=== PATIENT | female | born 1955 | race Two or more races ===

== ENCOUNTER 2018-12-30 15:00 | Inpatient (IN) | payer MEDICAID, OTHER ==
[~2018-12-30] VITALS: Ht 160 cm; Wt 72.6 kg
[~2018-12-30 15:00] MED LIST: AMLODIPINE BESYL5 MG ORAL; ASPIRIN EC81 MG ORAL; BRILINTA90 MG PO; CARVEDILOL25 MG ORAL; CLOPIDOGREL75 MG ORAL; COLACE100 MG ORAL; COREG12.5 MG ORAL; DOCUSATE SODIU100 MG ORAL; ECOTRIN81 MG ORAL; FAMOTIDINE20 MG ORAL; FEROSUL325 M1 PO; FUROSEMIDE20 M1 ORAL; GABAPENTIN300 MG ORAL; HUMALOG100 UNIT/4 SUBQ; LANTUS5 UNITS SUBQ; LEVAQUIN500 MG ORAL; LIPITOR80 MG ORAL; LOSARTAN POTASS50 MG ORAL; NORVASC10 MG ORAL; NOVOLOG100 UNITS1 SUBQ; PLAVIX75 MG ORAL; PROTONIX40 MG ORAL; SERTRALINE HCL50 MG ORAL; VITAMIN D250000 UNI1 ORAL
[2018-12-30 15:10] VITALS: BP 172/66
--- NOTE | 2018-12-30 15:10 | NUR ---
ED Nurse Note: BROUGHT IN BY PT'S DAUGHTER DUE TO CP X 1 WEEK. 06/10, NONRADIATING. ALSO C/O NAUSEA AND HEADACHE. SEEN BY DR. Mae MA SOB, VOMITING,
[2018-12-30] MEDS ORDERED: VITAMIN D250000 UNI1 ORAL (15:21)
[2018-12-30] MEDS ORDERED: ATORVASTATIN CA40 MG ORAL (15:21)
[2018-12-30] MEDS ORDERED: SODIUM BICARBO650 MG PO (15:21)
[2018-12-30] MEDS ORDERED: CARVEDILOL25 MG ORAL (15:24)
[2018-12-30] MEDS ORDERED: HYDRALAZINE HCL50 MG ORAL (15:24)
[2018-12-30] MEDS ORDERED: OMEPRAZOLE20 M2 ORAL (15:24)
[2018-12-30] MEDS ORDERED: SERTRALINE HCL25 MG ORAL (15:26)
[2018-12-30] MEDS ORDERED: CHLORTHALIDONE25 MG ORAL (15:26)
[2018-12-30] MEDS ORDERED: DOCUSATE SODIU100 MG ORAL (15:26)
[2018-12-30] MEDS ORDERED: LOSARTAN POTASS50 MG ORAL (15:26)
--- NOTE | 2018-12-30 15:50 | Emergency Room Report ---
History of Present Illness General Chief Complaint: Chest Pain Source: Patient, Medical Record Present Illness HPI Patient presents with complaints of chest pain Ongoing for the pat 7 days Denies any shortness of breath midsternal is the pain worsens with exertion also at nighttime she feels is worse Denies any pleurisy patient however also complains of epigastric discomfort nausea vomiting Denies any focal deficit Allergies: Coded Allergies: No Known Allergies (Unverified , 04/06/15) Patient History Past Medical History: see triage record Pertinent Family History: none Last Menstrual Period: menopause Reviewed Nursing Documentation: PMH: Agreed; PSxH: Agreed Nursing Documentation-PMH Past Medical History: No History, Except For Hx Cardiac Problems: Yes Hx Hypertension: Yes Hx Diabetes: Yes Hx Cancer: No Hx Gastrointestinal Problems: No Hx Neurological Problems: Yes Hx Headaches: Yes Hx Weakness: Yes Review of Systems All Other Systems: negative except mentioned in HPI Physical Exam Vital Signs Date Time Temp Pulse Resp B/P (MAP) Pulse Ox O2 Delivery O2 Flow Rate FiO2 12/30/18 15:08 97.9 84 19 100 Room Air 12/30/18 15:10 172/66 Sp02 EP Interpretation: reviewed, normal General Appearance: well appearing, no apparent distress Head: normocephalic, atraumatic Eyes: bilateral eye PERRL, bilateral eye EOMI ENT: hearing grossly normal, normal pharynx, TMs + canals normal, uvula midline Neck: full range of motion, supple, no meningismus, no bony tend Respiratory: lungs clear, normal breath sounds, no rhonchi, no respiratory distress, no retraction, no accessory muscle use Cardiovascular #1: normal peripheral pulses, regular rate, rhythm, no edema, no gallop, no JVD, no murmur Gastrointestinal: normal bowel sounds, non tender, soft, no mass, no organomegaly, non-distended, no guarding, no hernia, no pulsatile mass, no rebound Genitourinary: no CVA tenderness Musculoskeletal: normal inspection Neurologic: oriented x3, responsive, physical therapy coordinator III-XII nml as tested, motor strength/ tone normal, sensory intact Psychiatric: mood/affect normal Skin: normal color, no rash, warm/dry, palpation normal Lymphatic: normal inspection, no adenopathy Medical Decision Making Diagnostic Impression: Primary Impression: ACS (acute coronary syndrome) ER Course Patient is a fairly complex patient with multiple differential to consideration including but not limited to cardiac cardiopulmonary and vascular emergencies Patient's blood work thus far is appropriate EKG does not show any ST elevations Given the patient's risk factors and presentation Patient requires further inpatient care Labs Test 12/30/18 15:35 12/30/18 15:41 White Blood Count 12.7 K/UL (4.8-10.8) Red Blood Count 3.31 M/UL (4.20-5.40) Hemoglobin 10.7 G/DL (12.0-16.0) Hematocrit 31.7 % (37.0-47.0) Mean Corpuscular Volume 96 FL (80-99) Mean Corpuscular Hemoglobin 32.4 PG (27.0-31.0) Mean Corpuscular Hemoglobin Concent 33.9 G/DL (32.0-36.0) Red Cell Distribution Width 11.4 % (11.6-14.8) Platelet Count 271 K/UL (150-450) Mean Platelet Volume 5.3 FL (6.5-10.1) Neutrophils (%) (Auto) 68.8 % (45.0-75.0) Lymphocytes (%) (Auto) 22.3 % (20.0-45.0) Monocytes (%) (Auto) 6.5 % (1.0-10.0) Eosinophils (%) (Auto) 1.8 % (0.0-3.0) Basophils (%) (Auto) 0.6 % (0.0-2.0) Sodium Level 132 MMOL/L (136-145) Potassium Level 4.4 MMOL/L (3.5-5.1) Chloride Level 97 MMOL/L (98-107) Carbon Dioxide Level 22 MMOL/L (21-32) Anion Gap 13 mmol/L (5-15) Blood Urea Nitrogen 76 mg/dL (7-18) Creatinine 3.5 MG/DL (0.55-1.30) Estimat Glomerular Filtration Rate 13.3 mL/min (>60) Glucose Level 128 MG/DL (74-106) Calcium Level 9.2 MG/DL (8.5-10.1) Total Bilirubin 0.3 MG/DL (0.2-1.0) Aspartate Amino Transf (AST/SGOT) 15 U/L (15-37) Alanine Aminotransferase (ALT/SGPT) 20 U/L (12-78) Alkaline Phosphatase 104 U/L (46-116) Total Creatine Kinase 228 U/L (26-308) Creatine Kinase MB 3.4 NG/ML (0.0-3.6) Creatine Kinase MB Relative Index 1.4 Troponin I 0.000 ng/mL (0.000-0.056) Total Protein 8.4 G/DL (6.4-8.2) Albumin 3.4 G/DL (3.4-5.0) Globulin 5.0 g/dL Albumin/Globulin Ratio 0.7 (1.0-2.7) Lipase 197 U/L (73-393) Urine Color Pale yellow Urine Appearance Clear Urine pH 6.5 (4.5-8.0) Urine Specific [place] 1.005 (1.005-1.035) Urine Protein 3+ (NEGATIVE) Urine Glucose (UA) Negative (NEGATIVE) Urine Ketones Negative (NEGATIVE) Urine Blood 1+ (NEGATIVE) Urine Nitrite Negative (NEGATIVE) Urine Bilirubin Negative (NEGATIVE) Urine Urobilinogen Normal MG/DL (0.0-1.0) Urine Leukocyte Esterase 1+ (NEGATIVE) Urine RBC 2-4 /HPF (0 - 2) Urine WBC 0-2 /HPF (0 - 2) Urine Squamous Epithelial Cells Few /LPF (NONE/OCC) Urine Bacteria Few /HPF (NONE) EKG Diagnostic Results Rate: normal Rhythm: NSR ST Segments: other - Nonspecific ST T-wave changes Rhythm Strip Diag. Results EP Interpretation: yes Rate: 80 Rhythm: NSR, no PVC's, no ectopy Chest X-Ray Diagnostic Results Chest X-Ray Diagnostic Results : Chest X-Ray Ordered: Yes # of Views/Limited/Complete: 1 View Indication: Chest Pain EP Interpretation: Yes Interpretation: no consolidation, no effusion, no pneumothorax Impression: No acute disease - Cardiomegaly Electronically Signed by: Saul Santos DO Last Vital Signs Date Time Temp Pulse Resp B/P (MAP) Pulse Ox O2 Delivery O2 Flow Rate FiO2 12/30/18 15:10 97.9 79 21 172/66 100 Room Air Status: improved Disposition: ADMITTED INPATIENT Condition: Serious Saul Santos DO Dec 30, 2018 15:50
[2018-12-30 16:13] VITALS: BP 162/66
[2018-12-30 16:31] LABS: APPEARANCE,URINE CLEAR; BILIRUBIN, URINE NEGATIVE (NEGATIVE); COLOR,URINE PALE YELLOW; GLUCOSE, URINE (UA) NEGATIVE (NEGATIVE); KETONES,URINE NEGATIVE (NEGATIVE); LEUKOCYTE ESTERASE ,URINE 1+ (NEGATIVE); NITRITE,URINE NEGATIVE (NEGATIVE); PH,URINE 6.5 (4.5-8.0); PROTEIN,URINE 3+ (NEGATIVE); UROBILINOGEN,URINE NORMAL MG/DL (0.0-1.0)
[2018-12-30 16:32] LABS: ANION GAP 13 mmol/L (5-15); BLOOD UREA NITROGEN 76 mg/dL (7-18); CALCIUM 9.2 MG/DL (8.5-10.1); CARBON DIOXIDE 22 MMOL/L (21-32); CHLORIDE 97 MMOL/L (98-107); CREATININE 3.5 MG/DL (0.55-1.30); POTASSIUM 4.4 MMOL/L (3.5-5.1); SODIUM 132 MMOL/L (136-145)
[2018-12-30 16:34] LABS: BASOPHILS % (AUTO) 0.6 % (0.0-2.0); EOSINOPHILS % (AUTO) 1.8 % (0.0-3.0); HEMATOCRIT 31.7 % (37.0-47.0); HEMOGLOBIN 10.7 G/DL (12.0-16.0); LYMPHOCYTES % (AUTO) 22.3 % (20.0-45.0); MEAN CORPUSCULAR VOLUME 96 FL (80-99); MONOCYTES % (AUTO) 6.5 % (1.0-10.0); NEUTROPHILS % (AUTO) 68.8 % (45.0-75.0); PLATELET COUNT 271 K/UL (150-450); RED BLOOD COUNT 3.31 M/UL (4.20-5.40); RED CELL DISTRIBUTION WIDTH 11.4 % (11.6-14.8); WHITE BLOOD COUNT 12.7 K/UL (4.8-10.8)
--- NOTE | 2018-12-30 16:43 | Diagnostic Imaging Report ---
Indication: Chest pain Technique: One view of the chest Comparison: 06/30/2015 Findings: The heart is mildly enlarged. Lungs and pleural spaces are clear. No significant change Impression: Mild cardiomegaly. No acute process
[2018-12-30 16:45] LABS: ALANINE AMINOTRANSFERASE 20 U/L (12-78); ALBUMIN 3.4 G/DL (3.4-5.0); ALBUMIN/GLOBULIN RATIO 0.7 (1.0-2.7); ALKALINE PHOSPHATASE 104 U/L (46-116); ASPARTATE AMINO TRANSFERASE 15 U/L (15-37); BILIRUBIN,TOTAL 0.3 MG/DL (0.2-1.0); CKMB 3.4 NG/ML (0.0-3.6); CREATINE KINASE 228 U/L (26-308)
[2018-12-30 18:20] VITALS: BP 131/65
--- NOTE | 2018-12-30 19:14 | NUR ---
HAND-OFF: Report given to PETR Gaines. No s/s of distress.
--- NOTE | 2018-12-30 19:30 | NUR ---
ED Nurse Note: RECIEVED REPORT TO RESUME CARE, PT IN BED SLEEPING, AROUSES EASILY TO VERBAL STIMULI, PT DENIES CP AT THIS TIME, ON CARDIAC MONITORING, HAS PATENT SALINE LOCK IN LEFT QC, V/S STABLE, NO SOB OR LABORED BREATHING, PT WAITING FOR HOSPITAL ROOM FOR ADMISSION, WILL RESUME CARE ORDERED AND PREPARE FOR ADMIT.
[2018-12-30 20:15] VITALS: BP 124/59
--- NOTE | 2018-12-30 21:35 | NUR ---
ED Nurse Note: PT HAS ROOM FOR ADMISSION, CONTINUES TO REST QUIETLY IN BED, DENIES CP OR ANY CHAGNES AT THIS TIME, V/S STABLE, NO SOB ORLABORED BREATHING, REPORT GIVEN TO PETR NULL, BELONGINGS LIST COMPLETED, PT BEING TAKEN TO FLOOR BED VIA GURNEY AND ACLS PROTOCOLS, NAD NOTED DURING PT TRANSPORT WITH RN AND ER-TECH.
--- NOTE | 2018-12-30 22:15 | NUR ---
NURSE NOTES: Patient received from ED, transported via gurney, ambulated with steady gait to the bed. Report received from PETR Larios. Patient awake, alert and verbally responsive. No SOB, no acute distress on RA. IV site on R AC #20, patent and intact. V/S taken and stable. Put on cardiac technologist, shows sinus rhythm. Belongings checked and all accounted for. No skin breakdown noted. Pt oriented to staff and unit. Bed at lowest position, call light within reach. Paged Dr. Shoemaker, awaiting for call back for admission orders.
--- NOTE | 2018-12-30 23:30 | NUR ---
NURSE NOTES: Dr. Shoemaker called back for admission orders. Noted and carried out. Pt comfortable and sleeping at this time. Remains sinus rhythm at the monitor tech.
[2018-12-30] MEDS ORDERED: HYDROcodone/Acetamin 5/325 tab ORAL PRN (23:45)
[2018-12-31] VITALS: BP 137/68
--- NOTE | 2018-12-31 02:08 | NUR ---
NURSE NOTES: Pt asleep, breathing even and unlabored, no s/sx of pain nor any discomfort at this time. Bed at lowest position, call light within reach. Will continue to monitor.
[2018-12-31 04:00] VITALS: BP 131/71
[2018-12-31 04:36] LABS: BASOPHILS % (AUTO) 0.6 % (0.0-2.0); EOSINOPHILS % (AUTO) 2.8 % (0.0-3.0); HEMATOCRIT 30.4 % (37.0-47.0); HEMOGLOBIN 9.9 G/DL (12.0-16.0); LYMPHOCYTES % (AUTO) 25.3 % (20.0-45.0); MEAN CORPUSCULAR VOLUME 96 FL (80-99); MONOCYTES % (AUTO) 6.6 % (1.0-10.0); NEUTROPHILS % (AUTO) 64.7 % (45.0-75.0); PLATELET COUNT 271 K/UL (150-450); RED BLOOD COUNT 3.16 M/UL (4.20-5.40); WHITE BLOOD COUNT 9.5 K/UL (4.8-10.8)
[2018-12-31 04:57] LABS: ANION GAP 10 mmol/L (5-15); BLOOD UREA NITROGEN 71 mg/dL (7-18); CALCIUM 8.6 MG/DL (8.5-10.1); CARBON DIOXIDE 23 MMOL/L (21-32); CHLORIDE 104 MMOL/L (98-107); CHOLESTEROL 190 MG/DL (< 200); CREATININE 3.4 MG/DL (0.55-1.30); HDL CHOLESTEROL 45 MG/DL (40-60); SODIUM 137 MMOL/L (136-145); TRIGLYCERIDES 256 MG/DL (30-150)
[2018-12-31] MEDS: HydrALAZINE 50mg tab ORAL SCH ×4 (05:37→22:00)
[2018-12-31] MEDS: NovoLOG Insulin Flexpen SUBQ SCH ×4 (06:05→20:50)
--- NOTE | 2018-12-31 07:02 | NUR ---
HAND-OFF: Report given to PETR Chandra. Endorsed plan of care.
--- NOTE | 2018-12-31 07:39 | NUR ---
NURSE NOTES: Received report from Melissa. Pt AOx4 lying in bed, spontaneously opened up her eyes as we walked in in room air. Pt has no pain. Pt on hospital monitor SR to 1st degree ABB during night. Bed locked and in lowest position.
--- NOTE | 2018-12-31 07:50 | NUR ---
NURSE NOTES: Received report from Melissa. Pt AOx4, woke up upon receiving bedside report. R AC 20g sl. Iv patent flushed with 10ml ns. Pt on registered nurse cardiac rythm SR to 1st BBB last night. Bed locked and in lowest position. Call light within reach. b
[2018-12-31 08:00] VITALS: BP 134/66
[2018-12-31] MEDS: Sertraline 50mg tab ORAL SCH (08:26)
[2018-12-31] MEDS: Aspirin EC 81mg tab ORAL SCH (08:27)
[2018-12-31] MEDS ORDERED: Carvedilol 25mg Tab ORAL SCH (09:00)
[2018-12-31] MEDS ORDERED: Docusate 100mg cap ORAL SCH (09:00)
[2018-12-31] MEDS: Sodium Bicarbonate 650mg Tab ORAL SCH ×2 (09:30→17:28)
--- NOTE | 2018-12-31 11:42 | History and Physical ---
History of Present Illness General Date patient seen: Dec 31, 2018 Time patient seen: 09:00 Reason for Hospitalization: Chest Pain Present Illness HPI Patient is a 63 y/o female who presents with complaints of chest pain to the [facility] ED yesterday She stated her pain had been ongoing for the past 7 days. States pain is midsternal, exacerbated by exertion and states is worse at bedtime. Denied any dyspnea. No cough/fever or recent URI symptoms. She has no hx of CAD/CVA, non smoker, non-drinker Other complaints include headache without other neurologic complaints or vision changes and generalized abdominal pain. No n/v, no diarrhea or change in bowel habits. No melena or hematochezia. Allergies: Coded Allergies: No Known Allergies (Unverified , 04/06/15) Medication History Scheduled Amlodipine Besylate (Norvasc), 10 MG ORAL DAILY Aspirin (Ecotrin), 81 MG ORAL DAILY Atorvastatin (Lipitor), 80 MG ORAL QHS Atorvastatin Calcium* (Atorvastatin Calcium*), 80 MG ORAL BEDTIME, (Reported) Carvedilol (Coreg), 12.5 MG ORAL BID Carvedilol* (Carvedilol*), 25 MG ORAL DAILY, (Reported) Chlorthalidone* (Chlorthalidone*), 25 MG ORAL DAILY, (Reported) Clopidogrel Bisulfate* (Plavix*), 75 MG ORAL DAILY Docusate Sodium* (Colace*), 100 MG ORAL EVERY 12 HOURS Docusate Sodium* (Docusate Sodium*), 100 MG ORAL DAILY, (Reported) Ergocalciferol (Vitamin D2)* (Vitamin D*), 50,000 UNIT ORAL ONCE A WEEK, ( Reported) Hydralazine Hcl* (Hydralazine Hcl*), 50 MG ORAL EVERY 8 HOURS, (Reported) Insulin Aspart (Novolog Flexpen), 0 UNITS SUBQ BEFORE MEALS AND HS Omeprazole (Omeprazole), 20 MG ORAL DAILY, (Reported) Pantoprazole* (Protonix*), 40 MG ORAL DAILY Sertraline Hcl* (Sertraline Hcl*), 50 MG ORAL DAILY, (Reported) Sodium Bicarbonate* (Nahco3*), 650 MG PO BID, (Reported) Discontinued Medications Losartan Potassium* (Losartan Potassium*), 100 MG ORAL DAILY, (Reported) Discontinued Reason: MD discontinued med Patient History Limited by: language barrier History Provided By: Patient Healthcare decision maker Resuscitation status Full Code Advanced Directive on File No Past Medical/Surgical History Past Medical/Surgical History: (1) CKD (chronic kidney disease) stage 3, GFR 30-59 ml/min (2) Hypertension (3) Uncontrolled type 2 diabetes mellitus with chronic kidney disease (4) Dyslipidemia (5) CAD S/P percutaneous coronary angioplasty Family History Family History: Patient reports no known family medical history. Social History Social History: (1) No significant social history Review of Systems Constitutional: Reports: no symptoms Eye: Reports: no symptoms ENT: Reports: no symptoms Respiratory: Reports: no symptoms Cardiovascular: Reports: chest pain Gastrointestinal: Reports: abdominal pain Genitourinary: Reports: no symptoms Musculoskeletal: Reports: no symptoms Skin: Reports: no symptoms Psychiatric: Reports: no symptoms Neurological: Reports: headache Endocrine: Reports: no symptoms Hematologic/Lymphatic: Reports: no symptoms Physical Exam General Appearance: WD/WN, no apparent distress, alert Lines, tubes and drains: peripheral HEENT: normocephalic, atraumatic, anicteric, mucous membranes moist, PERRL, EOMI Neck: non-tender, normal alignment, supple, normal inspection Respiratory/Chest: lungs clear, normal breath sounds, no respiratory distress, no accessory muscle use Breasts: no masses Cardiovascular/Chest: normal peripheral pulses, normal rate, regular rhythm, no gallop/murmur, no JVD Abdomen: normal bowel sounds, non tender, soft, no organomegaly Extremities: normal range of motion, non-tender, normal inspection, no calf tenderness, normal capillary refill Skin Exam: normal pigmentation, warm/dry, no diaphoresis Neurologic: no motor/sensory deficits, alert, oriented x 3, responsive, normal mood/affect Last 24 Hour Vital Signs Date Time Temp Pulse Resp B/P (MAP) Pulse Ox O2 Delivery O2 Flow Rate FiO2 12/31/18 10:10 Room Air 12/31/18 08:28 77 134/66 12/31/18 08:27 77 134/66 12/31/18 08:00 97.7 77 18 134/66 (88) 9 12/31/18 05:37 132/72 12/31/18 04:00 71 12/31/18 04:00 98.9 71 18 131/71 (91) 99 12/31/18 00:00 69 12/31/18 00:00 137/68 12/31/18 00:00 99.3 79 18 137/68 (91) 99 12/30/18 22:18 Room Air 12/30/18 21:40 98.4 76 20 124/59 100 Room Air 79 12/30/18 20:15 98.4 79 20 124/59 100 Room Air 12/30/18 18:20 76 17 131/65 100 Room Air 12/30/18 16:13 78 18 162/66 100 Room Air 12/30/18 15:10 97.9 79 21 172/66 100 Room Air 12/30/18 15:10 79 21 Room Air 12/30/18 15:08 97.9 84 19 100 Room Air Intake and Output 12/30/18 12/31/18 19:00 07:00 Intake Total 120 ml Balance 120 ml Intake Oral 120 ml # Voids 1 1 Laboratory Tests Test 12/30/18 15:35 12/30/18 15:41 12/31/18 04:26 12/31/18 10:30 White Blood Count 12.7 K/UL (4.8-10.8) H 9.5 K/UL (4.8-10.8) Red Blood Count 3.31 M/UL (4.20-5.40) L 3.16 M/UL (4.20-5.40) L Hemoglobin 10.7 G/DL (12.0-16.0) L 9.9 G/DL (12.0-16.0) L Hematocrit 31.7 % (37.0-47.0) L 30.4 % (37.0-47.0) L Mean Corpuscular Volume 96 FL (80-99) 96 FL (80-99) Mean Corpuscular Hemoglobin 32.4 PG (27.0-31.0) H 31.4 PG (27.0-31.0) H Mean Corpuscular Hemoglobin Concent 33.9 G/DL (32.0-36.0) 32.7 G/DL (32.0-36.0) Red Cell Distribution Width 11.4 % (11.6-14.8) L 12.0 % (11.6-14.8) Platelet Count 271 K/UL (150-450) 271 K/UL (150-450) Mean Platelet Volume 5.3 FL (6.5-10.1) L 5.0 FL (6.5-10.1) L Neutrophils (%) (Auto) 68.8 % (45.0-75.0) 64.7 % (45.0-75.0) Lymphocytes (%) (Auto) 22.3 % (20.0-45.0) 25.3 % (20.0-45.0) Monocytes (%) (Auto) 6.5 % (1.0-10.0) 6.6 % (1.0-10.0) Eosinophils (%) (Auto) 1.8 % (0.0-3.0) 2.8 % (0.0-3.0) Basophils (%) (Auto) 0.6 % (0.0-2.0) 0.6 % (0.0-2.0) Sodium Level 132 MMOL/L (136-145) L 137 MMOL/L (136-145) Potassium Level 4.4 MMOL/L (3.5-5.1) 5.0 MMOL/L (3.5-5.1) Chloride Level 97 MMOL/L (98-107) L 104 MMOL/L (98-107) Carbon Dioxide Level 22 MMOL/L (21-32) 23 MMOL/L (21-32) Anion Gap 13 mmol/L (5-15) 10 mmol/L (5-15) Blood Urea Nitrogen 76 mg/dL (7-18) H 71 mg/dL (7-18) H Creatinine 3.5 MG/DL (0.55-1.30) H 3.4 MG/DL (0.55-1.30) H Estimat Glomerular Filtration Rate 13.3 mL/min (>60) 13.7 mL/min (>60) Glucose Level 128 MG/DL (74-106) H 115 MG/DL (74-106) H Calcium Level 9.2 MG/DL (8.5-10.1) 8.6 MG/DL (8.5-10.1) Total Bilirubin 0.3 MG/DL (0.2-1.0) Aspartate Amino Transf (AST/SGOT) 15 U/L (15-37) Alanine Aminotransferase (ALT/SGPT) 20 U/L (12-78) Alkaline Phosphatase 104 U/L (46-116) Total Creatine Kinase 228 U/L (26-308) Creatine Kinase MB 3.4 NG/ML (0.0-3.6) Creatine Kinase MB Relative Index 1.4 Troponin I 0.000 ng/mL (0.000-0.056) 0.000 ng/mL (0.000-0.056) Pending Total Protein 8.4 G/DL (6.4-8.2) H Albumin 3.4 G/DL (3.4-5.0) Globulin 5.0 g/dL Albumin/Globulin Ratio 0.7 (1.0-2.7) L Lipase 197 U/L (73-393) Urine Color Pale yellow Urine Appearance Clear Urine pH 6.5 (4.5-8.0) Urine Specific [place] 1.005 (1.005-1.035) Urine Protein 3+ (NEGATIVE) H Urine Glucose (UA) Negative (NEGATIVE) Urine Ketones Negative (NEGATIVE) Urine Blood 1+ (NEGATIVE) H Urine Nitrite Negative (NEGATIVE) Urine Bilirubin Negative (NEGATIVE) Urine Urobilinogen Normal MG/DL (0.0-1.0) Urine Leukocyte Esterase 1+ (NEGATIVE) H Urine RBC 2-4 /HPF (0 - 2) H Urine WBC 0-2 /HPF (0 - 2) Urine Squamous Epithelial Cells Few /LPF (NONE/OCC) Urine Bacteria Few /HPF (NONE) Hemoglobin A1c 8.4 % (4.3-6.0) H Triglycerides Level 256 MG/DL (30-150) H Cholesterol Level 190 MG/DL (< 200) LDL Cholesterol 100 mg/dL (<100) HDL Cholesterol 45 MG/DL (40-60) Cholesterol/HDL Ratio 4.2 (3.3-4.4) Height (Feet): 5 Height (Inches): 3.00 Weight (Pounds): 160 Medications Current Medications Medications (Trade) Dose Ordered Sig/Dara Route PRN Reason Start Time Stop Time Status Last Admin Dose Admin Acetaminophen (Tylenol) 650 mg Q4H PRN ORAL Mild Pain/Temp > 100.5 12/30/18 23:45 01/29/19 23:44 Acetaminophen/ Hydrocodone Bitart ([place] 5/325) 1 tab Q4H PRN ORAL Moderate Pain (Pain Scale 4-6) 12/30/18 23:45 01/06/19 23:44 Amlodipine Besylate (Norvasc) 10 mg DAILY ORAL 12/31/18 09:00 01/30/19 08:59 12/31/18 08:27 Aspirin (Ecotrin) 81 mg DAILY ORAL 12/31/18 09:00 01/30/19 08:59 12/31/18 08:27 Atorvastatin Calcium (Lipitor) 80 mg QHS ORAL 12/31/18 21:00 01/30/19 20:59 Carvedilol (Coreg) 25 mg DAILY ORAL 12/31/18 09:00 01/30/19 08:59 12/31/18 08:28 Chlorthalidone (Chlorthalidone) 25 mg DAILY ORAL 12/31/18 09:00 01/30/19 08:59 12/31/18 08:28 Clopidogrel Bisulfate (Plavix) 75 mg DAILY ORAL 12/31/18 09:00 01/30/19 08:59 12/31/18 08:28 Dextrose (Dextrose 50%) 25 ml Q30M PRN IV Hypoglycemia 12/30/18 23:45 01/29/19 23:44 Dextrose (Dextrose 50%) 50 ml Q30M PRN IV Hypoglycemia 12/30/18 23:45 01/29/19 23:44 Docusate Sodium (Colace) 100 mg DAILY ORAL 12/31/18 09:00 01/30/19 08:59 12/31/18 08:27 Ergocalciferol (Drisdol) 50,000 intlu ONCE A WEEK ORAL 01/02/19 09:00 02/01/19 08:59 Hydralazine HCl (Apresoline) 50 mg EVERY 8 HOURS ORAL 12/31/18 00:00 01/30/19 00:00 12/31/18 05:37 Insulin Aspart (NovoLOG) BEFORE MEALS AND HS SUBQ 12/31/18 06:30 01/30/19 06:29 12/31/18 06:05 Ondansetron HCl (Zofran) 4 mg Q4H PRN IVP Nausea & Vomiting 12/30/18 23:45 01/29/19 23:44 Pantoprazole (Protonix) 40 mg DAILY ORAL 12/31/18 09:00 01/30/19 08:59 12/31/18 08:28 Sertraline HCl (Zoloft) 50 mg DAILY ORAL 12/31/18 09:00 01/30/19 08:59 12/31/18 08:26 Sodium Bicarbonate (NaHCO3) 650 mg BID ORAL 12/31/18 09:00 01/30/19 08:59 12/31/18 09:30 Assessment/Plan Problem List: (1) Chest pain of uncertain etiology Assessment & Plan: Rule out acs with serial EKGs/troponins Cont cardiac monitoring Consider Echo Cardiology consult Cont asa/plavix/coreg for now ICD Codes: R07.89 - Other chest pain SNOMED: 07121238 (2) CAD S/P percutaneous coronary angioplasty Assessment & Plan: Likely had prior stent placement however pt is poor historian Cont cardiac monitoring Cont asa/plavix Troponins initially neg f/u cardiology recs ICD Codes: I25.10 - Atherosclerotic heart disease of [place] coronary artery without angina pectoris; Z98.61 - Coronary angioplasty status SNOMED: 560613861 (3) CKD (chronic kidney disease) stage 5, GFR less than 15 ml/min Assessment & Plan: Advanced CKD, likely chronic However, should be evaluated by Nephrology for med adjustment and r/o EMILIANO component Renally adjust med doses ICD Codes: N18.5 - Chronic kidney disease, stage 5 SNOMED: 356291587 (4) Uncontrolled type 2 diabetes mellitus with chronic kidney disease Assessment & Plan: Cont insulin sliding scale, sugars stable for now ICD Codes: E11.22 - Type 2 diabetes mellitus with diabetic chronic kidney disease; E11.65 - Type 2 diabetes mellitus with hyperglycemia SNOMED: 02463802, 369863357, 747176660 (5) Anemia due to stage 5 chronic kidney disease Assessment & Plan: Monitor Hgb closely Will d/w Renal whether pt would benefit from adding epogen ICD Codes: N18.5 - Chronic kidney disease, stage 5; D63.1 - Anemia in chronic kidney disease SNOMED: 940663530564828 (6) Acute hyponatremia Assessment & Plan: Presented with hyponatremia, now resolved on repeat testing Monitor Na, apprec renal input ICD Codes: E87.1 - Hypo-osmolality and hyponatremia SNOMED: 3556659 (7) Hypertension Assessment & Plan: Cont coreg/chlorthalidone/norvasc ICD Codes: I10 - Essential (primary) hypertension SNOMED: 08535096 (8) Dyslipidemia Assessment & Plan: Cont statin ICD Codes: E78.5 - Hyperlipidemia, unspecified SNOMED: 580922881 German Steinberg MD Dec 31, 2018 11:42
[2018-12-31 12:00] VITALS: BP_SYST 107; BP_SYST 114; BP_DIAS 55; BP_DIAS 90
--- NOTE | 2018-12-31 13:22 | Consultation ---
History of Present Illness General Date patient seen: Dec 31, 2018 Time patient seen: 13:16 Chief Complaint: Chest Pain Present Illness HPI Patient is a 63 y/o female who presents with complaints of chest pain to the [facility] [place] [facility] yesterday. CXR clear, Troponin negative x3. Hx of HLD, HTN< CAD s /p PCI NO previous [place]/PE/DVT CVA, Chest pain is pressure sensation, no radiation no back pain no fever Allergies: Coded Allergies: No Known Allergies (Unverified , 04/06/15) Medication History Scheduled Amlodipine Besylate (Norvasc), 10 MG ORAL DAILY Aspirin (Ecotrin), 81 MG ORAL DAILY Atorvastatin (Lipitor), 80 MG ORAL QHS Atorvastatin Calcium* (Atorvastatin Calcium*), 80 MG ORAL BEDTIME, (Reported) Carvedilol (Coreg), 12.5 MG ORAL BID Carvedilol* (Carvedilol*), 25 MG ORAL DAILY, (Reported) Chlorthalidone* (Chlorthalidone*), 25 MG ORAL DAILY, (Reported) Clopidogrel Bisulfate* (Plavix*), 75 MG ORAL DAILY Docusate Sodium* (Colace*), 100 MG ORAL EVERY 12 HOURS Docusate Sodium* (Docusate Sodium*), 100 MG ORAL DAILY, (Reported) Ergocalciferol (Vitamin D2)* (Vitamin D*), 50,000 UNIT ORAL ONCE A WEEK, ( Reported) Hydralazine Hcl* (Hydralazine Hcl*), 50 MG ORAL EVERY 8 HOURS, (Reported) Insulin Aspart (Novolog Flexpen), 0 UNITS SUBQ BEFORE MEALS AND HS Omeprazole (Omeprazole), 20 MG ORAL DAILY, (Reported) Pantoprazole* (Protonix*), 40 MG ORAL DAILY Sertraline Hcl* (Sertraline Hcl*), 50 MG ORAL DAILY, (Reported) Sodium Bicarbonate* (Nahco3*), 650 MG PO BID, (Reported) Discontinued Medications Losartan Potassium* (Losartan Potassium*), 100 MG ORAL DAILY, (Reported) Discontinued Reason: MD discontinued med Patient History Healthcare decision maker Resuscitation status Full Code Advanced Directive on File No Review of Systems Eye: Reports: no symptoms ENT: Reports: no symptoms Respiratory: Reports: no symptoms Cardiovascular: Reports: chest pain Gastrointestinal: Reports: no symptoms Genitourinary: Reports: no symptoms Musculoskeletal: Reports: no symptoms Skin: Reports: no symptoms Psychiatric: Reports: no symptoms Neurological: Reports: no symptoms Endocrine: Reports: no symptoms Hematologic/Lymphatic: Reports: no symptoms Physical Exam General Appearance: no apparent distress, lethargic Lines, tubes and drains: peripheral HEENT: normocephalic, atraumatic, anicteric, mucous membranes moist Neck: normal alignment, supple, normal inspection Respiratory/Chest: lungs clear, normal breath sounds, no respiratory distress, no accessory muscle use Cardiovascular/Chest: normal peripheral pulses, normal rate, regular rhythm Abdomen: normal bowel sounds, non tender, no organomegaly Extremities: non-tender, normal inspection Last 24 Hour Vital Signs Date Time Temp Pulse Resp B/P (MAP) Pulse Ox O2 Delivery O2 Flow Rate FiO2 12/31/18 10:10 Room Air 12/31/18 08:28 77 134/66 12/31/18 08:27 77 134/66 12/31/18 08:00 97.7 77 18 134/66 (88) 9 12/31/18 08:00 75 12/31/18 05:37 132/72 12/31/18 04:00 71 12/31/18 04:00 98.9 71 18 131/71 (91) 99 12/31/18 00:00 69 12/31/18 00:00 137/68 12/31/18 00:00 99.3 79 18 137/68 (91) 99 12/30/18 22:18 Room Air 12/30/18 21:40 98.4 76 20 124/59 100 Room Air 79 12/30/18 20:15 98.4 79 20 124/59 100 Room Air 12/30/18 18:20 76 17 131/65 100 Room Air 12/30/18 16:13 78 18 162/66 100 Room Air 12/30/18 15:10 97.9 79 21 172/66 100 Room Air 12/30/18 15:10 79 21 Room Air 12/30/18 15:08 97.9 84 19 100 Room Air Intake and Output 12/30/18 12/31/18 19:00 07:00 Intake Total 120 ml Balance 120 ml Intake Oral 120 ml # Voids 1 1 Laboratory Tests Test 12/30/18 15:35 12/30/18 15:41 12/31/18 04:26 12/31/18 10:30 White Blood Count 12.7 K/UL (4.8-10.8) H 9.5 K/UL (4.8-10.8) Red Blood Count 3.31 M/UL (4.20-5.40) L 3.16 M/UL (4.20-5.40) L Hemoglobin 10.7 G/DL (12.0-16.0) L 9.9 G/DL (12.0-16.0) L Hematocrit 31.7 % (37.0-47.0) L 30.4 % (37.0-47.0) L Mean Corpuscular Volume 96 FL (80-99) 96 FL (80-99) Mean Corpuscular Hemoglobin 32.4 PG (27.0-31.0) H 31.4 PG (27.0-31.0) H Mean Corpuscular Hemoglobin Concent 33.9 G/DL (32.0-36.0) 32.7 G/DL (32.0-36.0) Red Cell Distribution Width 11.4 % (11.6-14.8) L 12.0 % (11.6-14.8) Platelet Count 271 K/UL (150-450) 271 K/UL (150-450) Mean Platelet Volume 5.3 FL (6.5-10.1) L 5.0 FL (6.5-10.1) L Neutrophils (%) (Auto) 68.8 % (45.0-75.0) 64.7 % (45.0-75.0) Lymphocytes (%) (Auto) 22.3 % (20.0-45.0) 25.3 % (20.0-45.0) Monocytes (%) (Auto) 6.5 % (1.0-10.0) 6.6 % (1.0-10.0) Eosinophils (%) (Auto) 1.8 % (0.0-3.0) 2.8 % (0.0-3.0) Basophils (%) (Auto) 0.6 % (0.0-2.0) 0.6 % (0.0-2.0) Sodium Level 132 MMOL/L (136-145) L 137 MMOL/L (136-145) Potassium Level 4.4 MMOL/L (3.5-5.1) 5.0 MMOL/L (3.5-5.1) Chloride Level 97 MMOL/L (98-107) L 104 MMOL/L (98-107) Carbon Dioxide Level 22 MMOL/L (21-32) 23 MMOL/L (21-32) Anion Gap 13 mmol/L (5-15) 10 mmol/L (5-15) Blood Urea Nitrogen 76 mg/dL (7-18) H 71 mg/dL (7-18) H Creatinine 3.5 MG/DL (0.55-1.30) H 3.4 MG/DL (0.55-1.30) H Estimat Glomerular Filtration Rate 13.3 mL/min (>60) 13.7 mL/min (>60) Glucose Level 128 MG/DL (74-106) H 115 MG/DL (74-106) H Calcium Level 9.2 MG/DL (8.5-10.1) 8.6 MG/DL (8.5-10.1) Total Bilirubin 0.3 MG/DL (0.2-1.0) Aspartate Amino Transf (AST/SGOT) 15 U/L (15-37) Alanine Aminotransferase (ALT/SGPT) 20 U/L (12-78) Alkaline Phosphatase 104 U/L (46-116) Total Creatine Kinase 228 U/L (26-308) Creatine Kinase MB 3.4 NG/ML (0.0-3.6) Creatine Kinase MB Relative Index 1.4 Troponin I 0.000 ng/mL (0.000-0.056) 0.000 ng/mL (0.000-0.056) 0.000 ng/mL (0.000-0.056) Total Protein 8.4 G/DL (6.4-8.2) H Albumin 3.4 G/DL (3.4-5.0) Globulin 5.0 g/dL Albumin/Globulin Ratio 0.7 (1.0-2.7) L Lipase 197 U/L (73-393) Urine Color Pale yellow Urine Appearance Clear Urine pH 6.5 (4.5-8.0) Urine Specific [place] 1.005 (1.005-1.035) Urine Protein 3+ (NEGATIVE) H Urine Glucose (UA) Negative (NEGATIVE) Urine Ketones Negative (NEGATIVE) Urine Blood 1+ (NEGATIVE) H Urine Nitrite Negative (NEGATIVE) Urine Bilirubin Negative (NEGATIVE) Urine Urobilinogen Normal MG/DL (0.0-1.0) Urine Leukocyte Esterase 1+ (NEGATIVE) H Urine RBC 2-4 /HPF (0 - 2) H Urine WBC 0-2 /HPF (0 - 2) Urine Squamous Epithelial Cells Few /LPF (NONE/OCC) Urine Bacteria Few /HPF (NONE) Hemoglobin A1c 8.4 % (4.3-6.0) H Triglycerides Level 256 MG/DL (30-150) H Cholesterol Level 190 MG/DL (< 200) LDL Cholesterol 100 mg/dL (<100) HDL Cholesterol 45 MG/DL (40-60) Cholesterol/HDL Ratio 4.2 (3.3-4.4) Height (Feet): 5 Height (Inches): 3.00 Weight (Pounds): 160 Medications Current Medications Medications (Trade) Dose Ordered Sig/Dara Route PRN Reason Start Time Stop Time Status Last Admin Dose Admin Acetaminophen (Tylenol) 650 mg Q4H PRN ORAL Mild Pain/Temp > 100.5 12/30/18 23:45 01/29/19 23:44 Acetaminophen/ Hydrocodone Bitart ([place] 5/325) 1 tab Q4H PRN ORAL Moderate Pain (Pain Scale 4-6) 12/30/18 23:45 01/06/19 23:44 Amlodipine Besylate (Norvasc) 10 mg DAILY ORAL 12/31/18 09:00 01/30/19 08:59 12/31/18 08:27 Aspirin (Ecotrin) 81 mg DAILY ORAL 12/31/18 09:00 01/30/19 08:59 12/31/18 08:27 Atorvastatin Calcium (Lipitor) 80 mg BEDTIME ORAL 12/31/18 21:00 01/30/19 20:59 Carvedilol (Coreg) 12.5 mg Q12HR ORAL 12/31/18 21:00 01/30/19 20:59 Chlorthalidone (Chlorthalidone) 25 mg DAILY ORAL 12/31/18 09:00 01/30/19 08:59 12/31/18 08:28 Clopidogrel Bisulfate (Plavix) 75 mg DAILY ORAL 12/31/18 09:00 01/30/19 08:59 12/31/18 08:28 Dextrose (Dextrose 50%) 25 ml Q30M PRN IV Hypoglycemia 12/30/18 23:45 01/29/19 23:44 Dextrose (Dextrose 50%) 50 ml Q30M PRN IV Hypoglycemia 12/30/18 23:45 01/29/19 23:44 Docusate Sodium (Colace) 100 mg EVERY 12 HOURS ORAL 12/31/18 21:00 01/30/19 20:59 Ergocalciferol (Drisdol) 50,000 intlu ONCE A WEEK ORAL 01/02/19 09:00 02/01/19 08:59 Hydralazine HCl (Apresoline) 50 mg EVERY 8 HOURS ORAL 12/31/18 00:00 01/30/19 00:00 12/31/18 05:37 Insulin Aspart (NovoLOG) BEFORE MEALS AND HS SUBQ 12/31/18 06:30 01/30/19 06:29 12/31/18 11:44 Ondansetron HCl (Zofran) 4 mg Q4H PRN IVP Nausea & Vomiting 12/30/18 23:45 01/29/19 23:44 Pantoprazole (Protonix) 40 mg DAILY ORAL 12/31/18 09:00 01/30/19 08:59 12/31/18 08:28 Sertraline HCl (Zoloft) 50 mg DAILY ORAL 12/31/18 09:00 01/30/19 08:59 12/31/18 08:26 Sodium Bicarbonate (NaHCO3) 650 mg BID ORAL 12/31/18 09:00 01/30/19 08:59 12/31/18 09:30 Assessment/Plan Status: stable, tolerating diet Assessment/Plan Assessment (1) CKD (chronic kidney disease) stage 3, GFR 30-59 ml/min (2) Hypertension (3) Uncontrolled type 2 diabetes mellitus with chronic kidney disease (4) Dyslipidemia (5) CAD S/P percutaneous coronary angioplasty No evidence of ACS on EKG and troponin but patient high risk [facility] to evaluate LV function Continue aspirin/plavix Hold heparin nitro prn chest pain Continue statin Continue Bp control with norvasc and hydralazine, hold ACEI/ARB given CKD Aggressive glucose control D/c chlorthalidone due to risk of electrolyte derangement Lonny Pandya MD Dec 31, 2018 13:22
--- NOTE | 2018-12-31 13:28 | Consultation ---
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
[2018-12-31] MEDS ORDERED: Lexiscan 0.4mg/5ml syringe IV PRN (13:30)
[2018-12-31 16:00] VITALS: BP 115/59
--- NOTE | 2018-12-31 19:22 | NUR ---
HAND-OFF: Report given to Jeff Dominguez.
--- NOTE | 2018-12-31 19:23 | NUR ---
NURSE NOTES: Got report from Lisa HUMPHREYS. Pt in stable condition. Denies any pain. No s/s of distress noted. Pt resting in bed comfortably. Bed in low and locked position, call light within reach ,bedside table within reach. Continue to monitor.
[2018-12-31 20:37] VITALS: BP 129/66
[2018-12-31] MEDS: Docusate 100mg cap ORAL SCH (20:41)
[2018-12-31] MEDS: Carvedilol 12.5mg tab ORAL SCH (20:41)
[2018-12-31] MEDS: Atorvastatin 80mg tab ORAL SCH (20:41)
[2018-12-31] MEDS ORDERED: Atorvastatin 80mg tab ORAL SCH (21:00)
[2019-01-01] VITALS: BP 133/64
[2019-01-01 04:00] VITALS: BP 116/57
[2019-01-01] MEDS: HydrALAZINE 50mg tab ORAL SCH (05:38)
[2019-01-01] MEDS: NovoLOG Insulin Flexpen SUBQ SCH ×4 (06:33→20:55)
--- NOTE | 2019-01-01 07:40 | NUR ---
HAND-OFF: Report given to Lee Dominguez. endorsed plan of care.
[2019-01-01 08:00] VITALS: BP 111/69
[2019-01-01 08:10] LABS: ALANINE AMINOTRANSFERASE 22 U/L (12-78); ALBUMIN 2.9 G/DL (3.4-5.0); ALBUMIN/GLOBULIN RATIO 0.7 (1.0-2.7); ALKALINE PHOSPHATASE 78 U/L (46-116); ANION GAP 11 mmol/L (5-15); ASPARTATE AMINO TRANSFERASE 13 U/L (15-37); BILIRUBIN,TOTAL 0.3 MG/DL (0.2-1.0); BLOOD UREA NITROGEN 70 mg/dL (7-18); CALCIUM 8.4 MG/DL (8.5-10.1); CARBON DIOXIDE 21 MMOL/L (21-32); CHLORIDE 103 MMOL/L (98-107); CREATININE 3.6 MG/DL (0.55-1.30); FERRITIN 729 NG/ML (8-388); GAMMA GLUTAMYL TRANSPEPTIDASE 33 U/L (5-85); PHOSPHORUS 5.2 MG/DL (2.5-4.9); POTASSIUM 4.8 MMOL/L (3.5-5.1); SODIUM 135 MMOL/L (136-145)
--- NOTE | 2019-01-01 08:15 | NUR ---
CASE MANAGEMENT: INITIAL REVIEW 63 YO F PRESENTED TO OUR ED FROM HOME CC: CP PMHx: HTN. DM. ALMONTE. WEAKNESS. SI:CP. ACS. T 97.9 HR 84 RR 19 B/P 172/66 SATS 100% ON RA WBC 12.7 NA 132 CL 97 BUN 76 CR 3.5 GLU 128 IS:CXR (Impression: Mild cardiomegaly. No acute process) PATIENT ADMITTED TO TELE 12/30/2018 @ 1958 DCP: PATIENT TO BE DISCHARGED TO HOME ONCE MEDICALLY CLEARED. PLAN OF CARE: CARDIO EVAL 01/01/2019 SI:CP. ACS. T 98.6 HR 60 RR 18 B/P 133/64 SATS 98% ON RA BUN 71 CR 3.4 GLU 115 CA 8.4 IS:HYDRALAZINE PO Q8H DRISDOL PO QWEEK LIPITOR PO QHS NORVASC PO QD ASA PO QD PLAVIX PO QD PROTONIX PO QD INSULIN ASPART SUBQ AC/HS COREG PO Q12H TELE STATUS DCP: PATIENT TO BE DISCHARGED TO HOME ONCE MEDICALLY CLEARED. PLAN OF CARE: STRESS TEST W/ MEDS Addendum: 01/02/19 at 1722 by Xiomara Lopez CM [employer]
--- NOTE | 2019-01-01 08:26 | NUR ---
NURSE NOTES: Pt in bed in low position with HoB in semi fowlers, call light with pt and bed alarm on, pt has bathroom privileges, pt will NPO at midnight, breakfast at bedside, pt doesnt want to eat at this time, Pt Ox4 Yemeni speaking, IV site patient and intact locked, stress test scheduled for 01/02/19 will do cardiac assessment and intervention for tomorrow, no s/s of distress or SOB noted.
[2019-01-01 08:29] LABS: % IRON SATURATION 28 % (15-50); IRON 68 ug/dL (50-175); TOTAL IRON BINDING CAPACITY 247 ug/dL (250-450)
[2019-01-01] MEDS: Sodium Bicarbonate 650mg Tab ORAL SCH (10:05)
[2019-01-01] MEDS: Carvedilol 12.5mg tab ORAL SCH ×2 (10:05→20:49)
[2019-01-01] MEDS: Docusate 100mg cap ORAL SCH ×2 (10:06→20:48)
[2019-01-01] MEDS: Sertraline 50mg tab ORAL SCH (10:06)
[2019-01-01] MEDS: Aspirin EC 81mg tab ORAL SCH (10:06)
[2019-01-01 12:00] VITALS: BP 112/58
--- NOTE | 2019-01-01 13:30 | Nephrology Progress Note ---
Assessment/Plan Problem List: (1) CKD (chronic kidney disease) stage 5, GFR less than 15 ml/min (2) Diabetic nephropathy (3) ACS (acute coronary syndrome) (4) Hypertension (5) Dyslipidemia Assessment CKD: Diabetic/Hypertensive Nephropathy CAD, ACS HTN Morbid Obesity Plan Avoid Nephrotoxics Keep BP and BS in check Anemia grande SQ EPO Per cardio Subjective ROS Limited/Unobtainable: No Constitutional: Reports: malaise Objective Objective Last 24 Hour Vital Signs Date Time Temp Pulse Resp B/P (MAP) Pulse Ox O2 Delivery O2 Flow Rate FiO2 01/01/19 12:00 98.7 67 18 112/58 (76) 99 67 01/01/19 10:10 64 111/69 01/01/19 10:05 64 111/69 01/01/19 09:07 Room Air 01/01/19 08:00 97.9 64 18 111/69 (83) 99 01/01/19 07:57 67 01/01/19 05:38 116/57 01/01/19 04:00 61 01/01/19 04:00 98.6 60 18 116/57 (76) 98 60 01/01/19 00:00 62 01/01/19 00:00 98.8 65 18 133/64 (87) 98 65 12/31/18 22:19 63 12/31/18 22:00 129/66 12/31/18 21:00 Room Air 12/31/18 20:41 65 129/66 12/31/18 20:37 97.9 65 18 129/66 (87) 98 65 12/31/18 16:00 97.7 76 21 115/59 (77) 98 76 12/31/18 16:00 67 12/31/18 14:00 101/47 Intake and Output 12/31/18 01/01/19 19:00 07:00 # Voids 3 Laboratory Tests 01/01/19 05:05: Sodium Level 135L, Potassium Level 4.8, Chloride Level 103, Carbon Dioxide Level 21, Anion Gap 11, Blood Urea Nitrogen 70H, Creatinine 3.6H, Estimat Glomerular Filtration Rate 12.8, Glucose Level 155H, Hemoglobin A1c 8.1H, Uric Acid 7.7H, Calcium Level 8.4L, Phosphorus Level 5.2H, Magnesium Level 3.3H, Iron Level 68, Total Iron Binding Capacity 247L, Percent Iron Saturation 28, Unsaturated Iron Binding 179, Ferritin 729H, Total Bilirubin 0.3, Gamma Glutamyl Transpeptidase 33, Aspartate Amino Transf (AST/SGOT) 13L, Alanine Aminotransferase (ALT/SGPT) 22, Alkaline Phosphatase 78, C-Reactive Protein, Quantitative < 0.4, Pro-B-Type Natriuretic Peptide 199H, Total Protein 7.1, Albumin 2.9L, Globulin 4.2, Albumin/Globulin Ratio 0.7L, Vitamin B12 Level 1313H , Folate 54.3, Thyroid Stimulating Hormone (TSH) 2.076 Height (Feet): 5 Height (Inches): 3.00 Weight (Pounds): 160 General Appearance: no apparent distress Cardiovascular: normal rate Respiratory/Chest: decreased breath sounds Abdomen: other - obese Rafael Swan MD Jan 01, 2019 13:30
--- NOTE | 2019-01-01 13:37 | General Progress Note ---
Assessment/Plan Problem List: (1) Chest pain of uncertain etiology Assessment & Plan: Ruled out acs with serial neg EKGs/troponins, pt high risk for ACS Cont cardiac monitoring f/u Echo Cardiology consult appreciated Stress test tomorrow Cont asa/plavix/coreg for now ICD Codes: R07.89 - Other chest pain SNOMED: 20250498 (2) CAD S/P percutaneous coronary angioplasty Assessment & Plan: Likely had prior stent placement however pt is poor historian Cont cardiac monitoring Cont asa/plavix Troponins initially neg f/u cardiology recs ICD Codes: I25.10 - Atherosclerotic heart disease of [place] coronary artery without angina pectoris; Z98.61 - Coronary angioplasty status SNOMED: 801722153 (3) CKD (chronic kidney disease) stage 5, GFR less than 15 ml/min Assessment & Plan: Advanced CKD, likely chronic However, should be evaluated by Nephrology for med adjustment and r/o EMILIANO component Renally adjust med doses ICD Codes: N18.5 - Chronic kidney disease, stage 5 SNOMED: 320395495 (4) Uncontrolled type 2 diabetes mellitus with chronic kidney disease Assessment & Plan: Cont insulin sliding scale, sugars stable for now ICD Codes: E11.22 - Type 2 diabetes mellitus with diabetic chronic kidney disease; E11.65 - Type 2 diabetes mellitus with hyperglycemia SNOMED: 58642467, 228859053, 241035460 (5) Anemia due to stage 5 chronic kidney disease Assessment & Plan: Monitor Hgb closely Will d/w Renal whether pt would benefit from adding epogen ICD Codes: N18.5 - Chronic kidney disease, stage 5; D63.1 - Anemia in chronic kidney disease SNOMED: 746338253217518 (6) Acute hyponatremia Assessment & Plan: Presented with hyponatremia, now resolved on repeat testing Monitor Na, apprec renal input ICD Codes: E87.1 - Hypo-osmolality and hyponatremia SNOMED: 2807646 (7) Hypertension Assessment & Plan: Cont coreg/norvasc Agree with dc chlorthalidone ICD Codes: I10 - Essential (primary) hypertension SNOMED: 78974051 (8) Dyslipidemia Assessment & Plan: Cont statin ICD Codes: E78.5 - Hyperlipidemia, unspecified SNOMED: 438297191 Subjective Date patient seen: Jan 01, 2019 Time patient seen: 13:32 ROS Limited/Unobtainable: No Allergies: Coded Allergies: No Known Allergies (Unverified , 6/6/15) Subjective No acute overnight events, no new complaints. No additional chest pain or dyspnea. Objective Last 24 Hour Vital Signs Date Time Temp Pulse Resp B/P (MAP) Pulse Ox O2 Delivery O2 Flow Rate FiO2 01/01/19 12:00 98.7 67 18 112/58 (76) 99 67 01/01/19 10:10 64 111/69 01/01/19 10:05 64 111/69 01/01/19 09:07 Room Air 01/01/19 08:00 97.9 64 18 111/69 (83) 99 01/01/19 07:57 67 01/01/19 05:38 116/57 01/01/19 04:00 61 01/01/19 04:00 98.6 60 18 116/57 (76) 98 60 01/01/19 00:00 62 01/01/19 00:00 98.8 65 18 133/64 (87) 98 65 12/31/18 22:19 63 12/31/18 22:00 129/66 12/31/18 21:00 Room Air 12/31/18 20:41 65 129/66 12/31/18 20:37 97.9 65 18 129/66 (87) 98 65 12/31/18 16:00 97.7 76 21 115/59 (77) 98 76 12/31/18 16:00 67 12/31/18 14:00 101/47 Intake and Output 12/31/18 01/01/19 19:00 07:00 # Voids 3 Laboratory Tests 01/01/19 05:05: Sodium Level 135L, Potassium Level 4.8, Chloride Level 103, Carbon Dioxide Level 21, Anion Gap 11, Blood Urea Nitrogen 70H, Creatinine 3.6H, Estimat Glomerular Filtration Rate 12.8, Glucose Level 155H, Hemoglobin A1c 8.1H, Uric Acid 7.7H, Calcium Level 8.4L, Phosphorus Level 5.2H, Magnesium Level 3.3H, Iron Level 68, Total Iron Binding Capacity 247L, Percent Iron Saturation 28, Unsaturated Iron Binding 179, Ferritin 729H, Total Bilirubin 0.3, Gamma Glutamyl Transpeptidase 33, Aspartate Amino Transf (AST/SGOT) 13L, Alanine Aminotransferase (ALT/SGPT) 22, Alkaline Phosphatase 78, C-Reactive Protein, Quantitative < 0.4, Pro-B-Type Natriuretic Peptide 199H, Total Protein 7.1, Albumin 2.9L, Globulin 4.2, Albumin/Globulin Ratio 0.7L, Vitamin B12 Level 1313H , Folate 54.3, Thyroid Stimulating Hormone (TSH) 2.076 Height (Feet): 5 Height (Inches): 3.00 Weight (Pounds): 160 Objective General: alert, cooperative, no distress, appears stated age Head: normocephalic, without obvious abnormality, atraumatic Eyes: conjunctivae/corneas clear. PERRL, EOM's intact Throat: lips, mucosa, and tongue normal. MMM Neck: supple, symmetrical, trachea midline, and no JVD Lungs: clear to auscultation bilaterally Heart: regular rate and rhythm, S1, S2 normal, no murmur, click, rub or gallop Abdomen: soft, non-tender, non-distended, bowel sounds normal; no masses or organomegaly Extremities: extremities normal, atraumatic, no cyanosis or edema Pulses: 2+ and symmetric Skin: skin color, texture, turgor normal; no rashes or lesions Neurologic: grossly normal, no focal deficits German Steinberg MD Jan 01, 2019 13:37
[2019-01-01] MEDS: HydrALAZINE 25mg tab ORAL SCH ×2 (14:30→22:00)
[2019-01-01 16:00] VITALS: BP 122/60
--- NOTE | 2019-01-01 16:24 | Consultation ---
History of Present Illness General Date patient seen: Jan 01, 2019 Chief Complaint: Chest Pain Present Illness Allergies: Coded Allergies: No Known Allergies (Unverified , 04/06/15) Medication History Scheduled Amlodipine Besylate (Norvasc), 10 MG ORAL DAILY Aspirin (Ecotrin), 81 MG ORAL DAILY Atorvastatin (Lipitor), 80 MG ORAL QHS Atorvastatin Calcium* (Atorvastatin Calcium*), 80 MG ORAL BEDTIME, (Reported) Carvedilol (Coreg), 12.5 MG ORAL BID Carvedilol* (Carvedilol*), 25 MG ORAL DAILY, (Reported) Chlorthalidone* (Chlorthalidone*), 25 MG ORAL DAILY, (Reported) Clopidogrel Bisulfate* (Plavix*), 75 MG ORAL DAILY Docusate Sodium* (Colace*), 100 MG ORAL EVERY 12 HOURS Docusate Sodium* (Docusate Sodium*), 100 MG ORAL DAILY, (Reported) Ergocalciferol (Vitamin D2)* (Vitamin D*), 50,000 UNIT ORAL ONCE A WEEK, ( Reported) Hydralazine Hcl* (Hydralazine Hcl*), 50 MG ORAL EVERY 8 HOURS, (Reported) Insulin Aspart (Novolog Flexpen), 0 UNITS SUBQ BEFORE MEALS AND HS Omeprazole (Omeprazole), 20 MG ORAL DAILY, (Reported) Pantoprazole* (Protonix*), 40 MG ORAL DAILY Sertraline Hcl* (Sertraline Hcl*), 50 MG ORAL DAILY, (Reported) Sodium Bicarbonate* (Nahco3*), 650 MG PO BID, (Reported) Discontinued Medications Losartan Potassium* (Losartan Potassium*), 100 MG ORAL DAILY, (Reported) Discontinued Reason: MD discontinued med Patient History Healthcare decision maker Resuscitation status Full Code Advanced Directive on File No Physical Exam Last 24 Hour Vital Signs Date Time Temp Pulse Resp B/P (MAP) Pulse Ox O2 Delivery O2 Flow Rate FiO2 01/01/19 14:30 112/58 01/01/19 12:00 98.7 67 18 112/58 (76) 99 67 01/01/19 10:10 64 111/69 01/01/19 10:05 64 111/69 01/01/19 09:07 Room Air 01/01/19 08:00 97.9 64 18 111/69 (83) 99 01/01/19 07:57 67 01/01/19 05:38 116/57 01/01/19 04:00 61 01/01/19 04:00 98.6 60 18 116/57 (76) 98 60 01/01/19 00:00 62 01/01/19 00:00 98.8 65 18 133/64 (87) 98 65 12/31/18 22:19 63 12/31/18 22:00 129/66 12/31/18 21:00 Room Air 12/31/18 20:41 65 129/66 12/31/18 20:37 97.9 65 18 129/66 (87) 98 65 Intake and Output 12/31/18 01/01/19 19:00 07:00 # Voids 3 Laboratory Tests Test 01/01/19 05:05 Sodium Level 135 MMOL/L (136-145) L Potassium Level 4.8 MMOL/L (3.5-5.1) Chloride Level 103 MMOL/L (98-107) Carbon Dioxide Level 21 MMOL/L (21-32) Anion Gap 11 mmol/L (5-15) Blood Urea Nitrogen 70 mg/dL (7-18) H Creatinine 3.6 MG/DL (0.55-1.30) H Estimat Glomerular Filtration Rate 12.8 mL/min (>60) Glucose Level 155 MG/DL (74-106) H Hemoglobin A1c 8.1 % (4.3-6.0) H Uric Acid 7.7 MG/DL (2.6-7.2) H Calcium Level 8.4 MG/DL (8.5-10.1) L Phosphorus Level 5.2 MG/DL (2.5-4.9) H Magnesium Level 3.3 MG/DL (1.8-2.4) H Iron Level 68 ug/dL (50-175) Total Iron Binding Capacity 247 ug/dL (250-450) L Percent Iron Saturation 28 % (15-50) Unsaturated Iron Binding 179 ug/dL (112-346) Ferritin 729 NG/ML (8-388) H Total Bilirubin 0.3 MG/DL (0.2-1.0) Gamma Glutamyl Transpeptidase 33 U/L (5-85) Aspartate Amino Transf (AST/SGOT) 13 U/L (15-37) L Alanine Aminotransferase (ALT/SGPT) 22 U/L (12-78) Alkaline Phosphatase 78 U/L (46-116) C-Reactive Protein, Quantitative < 0.4 mg/dL (0.00-0.90) Pro-B-Type Natriuretic Peptide 199 pg/mL (0-125) H Total Protein 7.1 G/DL (6.4-8.2) Albumin 2.9 G/DL (3.4-5.0) L Globulin 4.2 g/dL Albumin/Globulin Ratio 0.7 (1.0-2.7) L Vitamin B12 Level 1313 PG/ML (193-986) H Folate 54.3 NG/ML (8.6-58.9) Thyroid Stimulating Hormone (TSH) 2.076 uiU/mL (0.358-3.740) Height (Feet): 5 Height (Inches): 3.00 Weight (Pounds): 160 Medications Current Medications Medications (Trade) Dose Ordered Sig/Dara Route PRN Reason Start Time Stop Time Status Last Admin Dose Admin Acetaminophen (Tylenol) 650 mg Q4H PRN ORAL Mild Pain/Temp > 100.5 12/30/18 23:45 01/29/19 23:44 Acetaminophen/ Hydrocodone Bitart ([place] 5/325) 1 tab Q4H PRN ORAL Moderate Pain (Pain Scale 4-6) 12/30/18 23:45 01/06/19 23:44 Allopurinol (Zyloprim) 200 mg DAILY ORAL 01/02/19 09:00 02/01/19 08:59 Amlodipine Besylate (Norvasc) 10 mg DAILY ORAL 01/02/19 09:00 01/30/19 08:59 Aspirin (Ecotrin) 81 mg DAILY ORAL 12/31/18 09:00 01/30/19 08:59 01/01/19 10:06 Atorvastatin Calcium (Lipitor) 80 mg BEDTIME ORAL 12/31/18 21:00 01/30/19 20:59 12/31/18 20:41 Carvedilol (Coreg) 12.5 mg Q12HR ORAL 12/31/18 21:00 01/30/19 20:59 01/01/19 10:05 Chlorthalidone (Chlorthalidone) 25 mg DAILY ORAL 12/31/18 09:00 01/30/19 08:59 01/01/19 10:06 Clopidogrel Bisulfate (Plavix) 75 mg DAILY ORAL 12/31/18 09:00 01/30/19 08:59 01/01/19 10:06 Dextrose (Dextrose 50%) 25 ml Q30M PRN IV Hypoglycemia 12/30/18 23:45 01/29/19 23:44 Dextrose (Dextrose 50%) 50 ml Q30M PRN IV Hypoglycemia 12/30/18 23:45 01/29/19 23:44 Docusate Sodium (Colace) 100 mg EVERY 12 HOURS ORAL 12/31/18 21:00 01/30/19 20:59 01/01/19 10:06 Epoetin Daron (Epoetin Daron-EPBX(NON ESRD)) 10,000 unit WED-WED-WED SUBQ 01/02/19 21:00 02/01/19 20:59 Ergocalciferol (Drisdol) 50,000 intlu ONCE A WEEK ORAL 01/02/19 09:00 02/01/19 08:59 Hydralazine HCl (Apresoline) 12.5 mg EVERY 8 HOURS ORAL 01/01/19 14:00 01/30/19 00:00 Insulin Aspart (NovoLOG) BEFORE MEALS AND HS SUBQ 12/31/18 06:30 01/30/19 06:29 01/01/19 11:49 Ondansetron HCl (Zofran) 4 mg Q4H PRN IVP Nausea & Vomiting 12/30/18 23:45 01/29/19 23:44 12/31/18 15:08 Pantoprazole (Protonix) 40 mg Q12HR ORAL 01/01/19 21:00 01/30/19 08:59 Regadenoson (Lexiscan) 0.4 mg ONCE PRN IV STRESS TEST 12/31/18 13:30 01/03/19 23:59 Sertraline HCl (Zoloft) 50 mg DAILY ORAL 12/31/18 09:00 01/30/19 08:59 01/01/19 10:06 Sevelamer Carbonate (Renvela) 800 mg THREE TIMES A DAY ORAL 01/01/19 18:00 01/31/19 17:59 Assessment/Plan Assessment/Plan Hematology Consult Date patient seen: Jan 01, 2019 Time patient seen: 09:00 Reason for Hospitalization: Chest Pain RFC: Anemia leonal AP DENNISON: Shak[place]ai HPI Patient is a 63 y/o female who presents with complaints of chest pain to the [facility] yesterday. She stated her pain had been ongoing for the past 7 days. States pain is midsternal, exacerbated by exertion and states is worse at bedtime. Denied any dyspnea. No cough/fever or recent URI symptoms. She has no hx of CAD/CVA, non smoker, non-drinker Other complaints include headache without other neurologic complaints or vision changes and generalized abdominal pain. No n/v, no diarrhea or change in bowel habits. No melena or hematochezia. Has been admitted back in 2014, noted to have ry on ckd, noted to have anemia, heme was consulted. Allergies: Coded Allergies: No Known Allergies (Unverified , 04/06/15) Medication History Scheduled Amlodipine Besylate (Norvasc), 10 MG ORAL DAILY Aspirin (Ecotrin), 81 MG ORAL DAILY Atorvastatin (Lipitor), 80 MG ORAL QHS Atorvastatin Calcium* (Atorvastatin Calcium*), 80 MG ORAL BEDTIME, (Reported) Carvedilol (Coreg), 12.5 MG ORAL BID Carvedilol* (Carvedilol*), 25 MG ORAL DAILY, (Reported) Chlorthalidone* (Chlorthalidone*), 25 MG ORAL DAILY, (Reported) Clopidogrel Bisulfate* (Plavix*), 75 MG ORAL DAILY Docusate Sodium* (Colace*), 100 MG ORAL EVERY 12 HOURS Docusate Sodium* (Docusate Sodium*), 100 MG ORAL DAILY, (Reported) Ergocalciferol (Vitamin D2)* (Vitamin D*), 50,000 UNIT ORAL ONCE A WEEK, ( Reported) Hydralazine Hcl* (Hydralazine Hcl*), 50 MG ORAL EVERY 8 HOURS, (Reported) Insulin Aspart (Novolog Flexpen), 0 UNITS SUBQ BEFORE MEALS AND HS Omeprazole (Omeprazole), 20 MG ORAL DAILY, (Reported) Pantoprazole* (Protonix*), 40 MG ORAL DAILY Sertraline Hcl* (Sertraline Hcl*), 50 MG ORAL DAILY, (Reported) Sodium Bicarbonate* (Nahco3*), 650 MG PO BID, (Reported) Discontinued Medications Losartan Potassium* (Losartan Potassium*), 100 MG ORAL DAILY, (Reported) Discontinued Reason: MD discontinued med Patient History Limited by: language barrier History Provided By: Patient Healthcare decision maker Resuscitation status Full Code Advanced Directive on File No Past Medical/Surgical History Past Medical/Surgical History: (1) CKD (chronic kidney disease) stage 3, GFR 30-59 ml/min (2) Hypertension (3) Uncontrolled type 2 diabetes mellitus with chronic kidney disease (4) Dyslipidemia (5) CAD S/P percutaneous coronary angioplasty Family History Family History: Patient reports no known family medical history. Social History Social History: (1) No significant social history ROS Review of Systems Constitutional: Reports: no symptoms Eye: Reports: no symptoms ENT: Reports: no symptoms Respiratory: Reports: no symptoms Cardiovascular: Reports: chest pain Gastrointestinal: Reports: abdominal pain Genitourinary: Reports: no symptoms Musculoskeletal: Reports: no symptoms Skin: Reports: no symptoms Psychiatric: Reports: no symptoms Neurological: Reports: headache Endocrine: Reports: no symptoms Hematologic/Lymphatic: Reports: no symptoms Physical Exam General Appearance: WD/WN, no apparent distress, alert Lines, tubes and drains: peripheral HEENT: normocephalic, atraumatic, anictericI Neck: non-tender, normal alignment, supple, normal inspection Respiratory/Chest: lungs clear, normal breath sounds, Breasts: no masses Cardiovascular/Chest: normal peripheral pulses Abdomen: normal bowel sounds, non tender, soft, no organomegaly Extremities: normal range of motion, nt Skin Exam: normal pigmentation, warm/dry, no diaphoresis Neurologic: no motor/sensory deficits, alert, oriented x 3, responsive Last 24 Hour Vital Signs Date Time Temp Pulse Resp B/P (MAP) Pulse Ox O2 Delivery O2 Flow Rate FiO2 12/31/18 10:10 Room Air 12/31/18 08:28 77 134/66 12/31/18 08:27 77 134/66 12/31/18 08:00 97.7 77 18 134/66 (88) 9 12/31/18 05:37 132/72 12/31/18 04:00 71 12/31/18 04:00 98.9 71 18 131/71 (91) 99 12/31/18 00:00 69 12/31/18 00:00 137/68 12/31/18 00:00 99.3 79 18 137/68 (91) 99 12/30/18 22:18 Room Air 12/30/18 21:40 98.4 76 20 124/59 100 Room Air 79 12/30/18 20:15 98.4 79 20 124/59 100 Room Air 12/30/18 18:20 76 17 131/65 100 Room Air 12/30/18 16:13 78 18 162/66 100 Room Air 12/30/18 15:10 97.9 79 21 172/66 100 Room Air 12/30/18 15:10 79 21 Room Air 12/30/18 15:08 97.9 84 19 100 Room Air Intake and Output 12/30/18 12/31/18 19:00 07:00 Intake Total 120 ml Balance 120 ml Intake Oral 120 ml # Voids 1 1 Laboratory Tests Test 12/30/18 15:35 12/30/18 15:41 12/31/18 04:26 12/31/18 10:30 White Blood Count 12.7 K/UL (4.8-10.8) H 9.5 K/UL (4.8-10.8) Red Blood Count 3.31 M/UL (4.20-5.40) L 3.16 M/UL (4.20-5.40) L Hemoglobin 10.7 G/DL (12.0-16.0) L 9.9 G/DL (12.0-16.0) L Hematocrit 31.7 % (37.0-47.0) L 30.4 % (37.0-47.0) L Mean Corpuscular Volume 96 FL (80-99) 96 FL (80-99) Mean Corpuscular Hemoglobin 32.4 PG (27.0-31.0) H 31.4 PG (27.0-31.0) H Mean Corpuscular Hemoglobin Concent 33.9 G/DL (32.0-36.0) 32.7 G/DL (32.0-36.0) Red Cell Distribution Width 11.4 % (11.6-14.8) L 12.0 % (11.6-14.8) Platelet Count 271 K/UL (150-450) 271 K/UL (150-450) Mean Platelet Volume 5.3 FL (6.5-10.1) L 5.0 FL (6.5-10.1) L Neutrophils (%) (Auto) 68.8 % (45.0-75.0) 64.7 % (45.0-75.0) Lymphocytes (%) (Auto) 22.3 % (20.0-45.0) 25.3 % (20.0-45.0) Monocytes (%) (Auto) 6.5 % (1.0-10.0) 6.6 % (1.0-10.0) Eosinophils (%) (Auto) 1.8 % (0.0-3.0) 2.8 % (0.0-3.0) Basophils (%) (Auto) 0.6 % (0.0-2.0) 0.6 % (0.0-2.0) Sodium Level 132 MMOL/L (136-145) L 137 MMOL/L (136-145) Potassium Level 4.4 MMOL/L (3.5-5.1) 5.0 MMOL/L (3.5-5.1) Chloride Level 97 MMOL/L (98-107) L 104 MMOL/L (98-107) Carbon Dioxide Level 22 MMOL/L (21-32) 23 MMOL/L (21-32) Anion Gap 13 mmol/L (5-15) 10 mmol/L (5-15) Blood Urea Nitrogen 76 mg/dL (7-18) H 71 mg/dL (7-18) H Creatinine 3.5 MG/DL (0.55-1.30) H 3.4 MG/DL (0.55-1.30) H Estimat Glomerular Filtration Rate 13.3 mL/min (>60) 13.7 mL/min (>60) Glucose Level 128 MG/DL (74-106) H 115 MG/DL (74-106) H Calcium Level 9.2 MG/DL (8.5-10.1) 8.6 MG/DL (8.5-10.1) Total Bilirubin 0.3 MG/DL (0.2-1.0) Aspartate Amino Transf (AST/SGOT) 15 U/L (15-37) Alanine Aminotransferase (ALT/SGPT) 20 U/L (12-78) Alkaline Phosphatase 104 U/L (46-116) Total Creatine Kinase 228 U/L (26-308) Creatine Kinase MB 3.4 NG/ML (0.0-3.6) Creatine Kinase MB Relative Index 1.4 Troponin I 0.000 ng/mL (0.000-0.056) 0.000 ng/mL (0.000-0.056) Pending Total Protein 8.4 G/DL (6.4-8.2) H Albumin 3.4 G/DL (3.4-5.0) Globulin 5.0 g/dL Albumin/Globulin Ratio 0.7 (1.0-2.7) L Lipase 197 U/L (73-393) Urine Color Pale yellow Urine Appearance Clear Urine pH 6.5 (4.5-8.0) Urine Specific [place] 1.005 (1.005-1.035) Urine Protein 3+ (NEGATIVE) H Urine Glucose (UA) Negative (NEGATIVE) Urine Ketones Negative (NEGATIVE) Urine Blood 1+ (NEGATIVE) H Urine Nitrite Negative (NEGATIVE) Urine Bilirubin Negative (NEGATIVE) Urine Urobilinogen Normal MG/DL (0.0-1.0) Urine Leukocyte Esterase 1+ (NEGATIVE) H Urine RBC 2-4 /HPF (0 - 2) H Urine WBC 0-2 /HPF (0 - 2) Urine Squamous Epithelial Cells Few /LPF (NONE/OCC) Urine Bacteria Few /HPF (NONE) Hemoglobin A1c 8.4 % (4.3-6.0) H Triglycerides Level 256 MG/DL (30-150) H Cholesterol Level 190 MG/DL (< 200) LDL Cholesterol 100 mg/dL (<100) HDL Cholesterol 45 MG/DL (40-60) Cholesterol/HDL Ratio 4.2 (3.3-4.4) Height (Feet): 5 Height (Inches): 3.00 Weight (Pounds): 160 Medications Current Medications Medications (Trade) Dose Ordered Sig/Dara Route PRN Reason Start Time Stop Time Status Last Admin Dose Admin Acetaminophen (Tylenol) 650 mg Q4H PRN ORAL Mild Pain/Temp > 100.5 12/30/18 23:45 01/29/19 23:44 Acetaminophen/ Hydrocodone Bitart ([place] 5/325) 1 tab Q4H PRN ORAL Moderate Pain (Pain Scale 4-6) 12/30/18 23:45 01/06/19 23:44 Amlodipine Besylate (Norvasc) 10 mg DAILY ORAL 12/31/18 09:00 01/30/19 08:59 12/31/18 08:27 Aspirin (Ecotrin) 81 mg DAILY ORAL 12/31/18 09:00 01/30/19 08:59 12/31/18 08:27 Atorvastatin Calcium (Lipitor) 80 mg QHS ORAL 12/31/18 21:00 01/30/19 20:59 Carvedilol (Coreg) 25 mg DAILY ORAL 12/31/18 09:00 01/30/19 08:59 12/31/18 08:28 Chlorthalidone (Chlorthalidone) 25 mg DAILY ORAL 12/31/18 09:00 01/30/19 08:59 12/31/18 08:28 Clopidogrel Bisulfate (Plavix) 75 mg DAILY ORAL 12/31/18 09:00 01/30/19 08:59 12/31/18 08:28 Dextrose (Dextrose 50%) 25 ml Q30M PRN IV Hypoglycemia 12/30/18 23:45 01/29/19 23:44 Dextrose (Dextrose 50%) 50 ml Q30M PRN IV Hypoglycemia 12/30/18 23:45 01/29/19 23:44 Docusate Sodium (Colace) 100 mg DAILY ORAL 12/31/18 09:00 01/30/19 08:59 12/31/18 08:27 Ergocalciferol (Drisdol) 50,000 intlu ONCE A WEEK ORAL 01/02/19 09:00 02/01/19 08:59 Hydralazine HCl (Apresoline) 50 mg EVERY 8 HOURS ORAL 12/31/18 00:00 01/30/19 00:00 12/31/18 05:37 Insulin Aspart (NovoLOG) BEFORE MEALS AND HS SUBQ 12/31/18 06:30 01/30/19 06:29 12/31/18 06:05 Ondansetron HCl (Zofran) 4 mg Q4H PRN IVP Nausea & Vomiting 12/30/18 23:45 01/29/19 23:44 Pantoprazole (Protonix) 40 mg DAILY ORAL 12/31/18 09:00 01/30/19 08:59 12/31/18 08:28 Sertraline HCl (Zoloft) 50 mg DAILY ORAL 12/31/18 09:00 01/30/19 08:59 12/31/18 08:26 Sodium Bicarbonate (NaHCO3) 650 mg BID ORAL 12/31/18 09:00 01/30/19 08:59 12/31/18 09:30 Assessment and Recs: # Anemia of chronic disease -- likely related to renal disease --> Anemia workup has been ordered/reviewed and c/w acd --> No evidence of hemolysis is noted, peripheral smear has been reviewed. --> Hgb goal >7. Transfuse prn. --> Epogen has been started sq, goal hgb 10 range --> Medications have been reviewed # Chest pain of uncertain etiology Rule out acs with serial EKGs/troponins --> Cont cardiac monitoring. Consider Echo --> appreciate cards recs --> Troponins initially neg # CKD (chronic kidney disease) stage 5, GFR less than 15 ml/min --> current cr is worse compared to baseline, appears to be 3.-4 range now --> epogen has been started # Uncontrolled type 2 diabetes mellitus with chronic kidney disease --> Cont insulin sliding scale, sugars stable for now --> hgb a1c goal <10SNOMED: [id number], [id number], [id number] # Acute hyponatremia # Hypertension --> Cont coreg/chlorthalidone/norvasc --> sbp goal <140 The timing of this note does not necessarily reflect the time of the patient was seen. Greatly appreciate consultation! Roscoe Sandy MD Jan 01, 2019 16:24
--- NOTE | 2019-01-01 16:36 | Cardiology Progress Note ---
Assessment/Plan Status: stable Assessment/Plan Assessment/Plan Assessment/Plan Status: stable, tolerating diet Assessment/Plan Assessment (1) CKD (chronic kidney disease) stage 3, GFR 30-59 ml/min (2) Hypertension (3) Uncontrolled type 2 diabetes mellitus with chronic kidney disease (4) Dyslipidemia (5) CAD S/P percutaneous coronary angioplasty No evidence of ACS on EKG and troponin but patient high risk Will order lexiscan cardioltie for wednesday Echo to evaluate LV function Continue aspirin/plavix Hold heparin nitro prn chest pain Continue statin Continue Bp control with norvasc and hydralazine, hold ACEI/ARB given CKD Aggressive glucose control D/c chlorthalidone due to risk of electrolyte derangement Subjective Cardiovascular: Reports: no symptoms Respiratory: Reports: no symptoms Gastrointestinal/Abdominal: Reports: no symptoms Genitourinary: Reports: no symptoms Subjective No acute events, no chest pain, for stress test in AM Objective Last 24 Hour Vital Signs Date Time Temp Pulse Resp B/P (MAP) Pulse Ox O2 Delivery O2 Flow Rate FiO2 01/01/19 14:30 112/58 01/01/19 12:00 98.7 67 18 112/58 (76) 99 67 01/01/19 10:10 64 111/69 01/01/19 10:05 64 111/69 01/01/19 09:07 Room Air 01/01/19 08:00 97.9 64 18 111/69 (83) 99 01/01/19 07:57 67 01/01/19 05:38 116/57 01/01/19 04:00 61 01/01/19 04:00 98.6 60 18 116/57 (76) 98 60 01/01/19 00:00 62 01/01/19 00:00 98.8 65 18 133/64 (87) 98 65 12/31/18 22:19 63 12/31/18 22:00 129/66 12/31/18 21:00 Room Air 12/31/18 20:41 65 129/66 12/31/18 20:37 97.9 65 18 129/66 (87) 98 65 General Appearance: WD/WN, no apparent distress, alert EENT: PERRL/EOMI, normal ENT inspection, TMs normal, pharynx normal Neck: non-tender, normal alignment, supple, normal inspection, no JVD Rhythm: NSR Cardiovascular: normal peripheral pulses, normal rate Respiratory/Chest: chest wall non-tender, lungs clear, normal breath sounds Abdomen: normal bowel sounds, non tender, soft, no organomegaly, no mass Extremities: normal range of motion, non-tender, normal inspection, no calf tenderness, no swelling Neurologic: gag writer II-XII grossly normal, no motor/sensory deficits Intake and Output 12/31/18 01/01/19 19:00 07:00 # Voids 3 Laboratory Tests Test 01/01/19 05:05 Sodium Level 135 MMOL/L (136-145) L Potassium Level 4.8 MMOL/L (3.5-5.1) Chloride Level 103 MMOL/L (98-107) Carbon Dioxide Level 21 MMOL/L (21-32) Anion Gap 11 mmol/L (5-15) Blood Urea Nitrogen 70 mg/dL (7-18) H Creatinine 3.6 MG/DL (0.55-1.30) H Estimat Glomerular Filtration Rate 12.8 mL/min (>60) Glucose Level 155 MG/DL (74-106) H Hemoglobin A1c 8.1 % (4.3-6.0) H Uric Acid 7.7 MG/DL (2.6-7.2) H Calcium Level 8.4 MG/DL (8.5-10.1) L Phosphorus Level 5.2 MG/DL (2.5-4.9) H Magnesium Level 3.3 MG/DL (1.8-2.4) H Iron Level 68 ug/dL (50-175) Total Iron Binding Capacity 247 ug/dL (250-450) L Percent Iron Saturation 28 % (15-50) Unsaturated Iron Binding 179 ug/dL (112-346) Ferritin 729 NG/ML (8-388) H Total Bilirubin 0.3 MG/DL (0.2-1.0) Gamma Glutamyl Transpeptidase 33 U/L (5-85) Aspartate Amino Transf (AST/SGOT) 13 U/L (15-37) L Alanine Aminotransferase (ALT/SGPT) 22 U/L (12-78) Alkaline Phosphatase 78 U/L (46-116) C-Reactive Protein, Quantitative < 0.4 mg/dL (0.00-0.90) Pro-B-Type Natriuretic Peptide 199 pg/mL (0-125) H Total Protein 7.1 G/DL (6.4-8.2) Albumin 2.9 G/DL (3.4-5.0) L Globulin 4.2 g/dL Albumin/Globulin Ratio 0.7 (1.0-2.7) L Vitamin B12 Level 1313 PG/ML (193-986) H Folate 54.3 NG/ML (8.6-58.9) Thyroid Stimulating Hormone (TSH) 2.076 uiU/mL (0.358-3.740) Lonny Pandya MD Jan 01, 2019 16:36
[2019-01-01 18:23] LABS: BASOPHILS % (AUTO) 0.7 % (0.0-2.0); EOSINOPHILS % (AUTO) 2.1 % (0.0-3.0); HEMATOCRIT 28.2 % (37.0-47.0); HEMOGLOBIN 9.4 G/DL (12.0-16.0); LYMPHOCYTES % (AUTO) 24.1 % (20.0-45.0); MEAN CORPUSCULAR VOLUME 97 FL (80-99); MONOCYTES % (AUTO) 6.4 % (1.0-10.0); NEUTROPHILS % (AUTO) 66.7 % (45.0-75.0); PLATELET COUNT 259 K/UL (150-450); RED CELL DISTRIBUTION WIDTH 11.8 % (11.6-14.8); WHITE BLOOD COUNT 9.3 K/UL (4.8-10.8)
--- NOTE | 2019-01-01 19:19 | NUR ---
HAND-OFF: Report given to Jeff Dominguez, endorsed stress test for tomorrow, NPO midnight.
--- NOTE | 2019-01-01 19:20 | NUR ---
NURSE NOTES: Got report from Lee HUMPHREYS. Pt in stable condition. Denies any pain. No s/s of distress noted. Pt resting in bed comfortably. Bed in low and locked position, call light within reach, bedside table within reach. continue to monitor.
[2019-01-01 20:00] VITALS: BP 126/65
[2019-01-01] MEDS: Atorvastatin 80mg tab ORAL SCH (20:49)
[2019-01-02 00:07] VITALS: BP 125/56
[2019-01-02 04:00] VITALS: BP 130/61
[2019-01-02] MEDS: HydrALAZINE 25mg tab ORAL SCH ×2 (05:35→14:26)
[2019-01-02] MEDS: NovoLOG Insulin Flexpen SUBQ SCH ×3 (06:04→17:42)
--- NOTE | 2019-01-02 07:30 | NUR ---
NURSE NOTES: Received report from Jeff HUMPHREYS. Pt is awake, alert, oriented x4, observed pt ambulating to/from restroom with steady gait, upon entering pt's room. Pt is Maltese speaking. Denies any chest pain or shortness of breath while on room air. No other discomfort present. IV access on left FA #20G, saline lock, patent/intact. Skin is intact. Call light is placed within easy reach, bed in lowest position, two side rails up, brakes engaged. Pt is NPO since midnight previous shift awaiting for stress test today. Mag level today 3.0 and Na 134, Dr Mckoy and Dr Ayon notified. No new orders given. Will continue to monitor pt and follow plan of care.
--- NOTE | 2019-01-02 07:45 | NUR ---
HAND-OFF: Report given to michelle angela. endorsed plan of care.
[2019-01-02 07:58] LABS: ALANINE AMINOTRANSFERASE 25 U/L (12-78); ALBUMIN 2.9 G/DL (3.4-5.0); ALBUMIN/GLOBULIN RATIO 0.7 (1.0-2.7); ALKALINE PHOSPHATASE 75 U/L (46-116); ANION GAP 10 mmol/L (5-15); ASPARTATE AMINO TRANSFERASE 20 U/L (15-37); BILIRUBIN,TOTAL 0.3 MG/DL (0.2-1.0); BLOOD UREA NITROGEN 67 mg/dL (7-18); CALCIUM 8.7 MG/DL (8.5-10.1); CARBON DIOXIDE 22 MMOL/L (21-32); CHLORIDE 102 MMOL/L (98-107); CREATINE KINASE 152 U/L (26-308); CREATININE 3.6 MG/DL (0.55-1.30); GAMMA GLUTAMYL TRANSPEPTIDASE 33 U/L (5-85); PHOSPHORUS 5.2 MG/DL (2.5-4.9); POTASSIUM 4.7 MMOL/L (3.5-5.1); SODIUM 134 MMOL/L (136-145)
[2019-01-02 08:00] VITALS: BP 137/66
[2019-01-02] MEDS: Docusate 100mg cap ORAL SCH (08:56)
[2019-01-02] MEDS: Carvedilol 12.5mg tab ORAL SCH (08:56)
[2019-01-02] MEDS: Sertraline 50mg tab ORAL SCH (08:56)
[2019-01-02] MEDS: Aspirin EC 81mg tab ORAL SCH (08:56)
[2019-01-02] MEDS ORDERED: Vitamin D 50,000 units cap ORAL SCH (09:00)
[2019-01-02] MEDS ORDERED: Allopurinol 100mg Tab ORAL SCH (09:00)
[2019-01-02 09:50] LABS: BASOPHILS % (AUTO) 0.6 % (0.0-2.0); EOSINOPHILS % (AUTO) 2.8 % (0.0-3.0); HEMOGLOBIN 9.6 G/DL (12.0-16.0); LYMPHOCYTES % (AUTO) 21.3 % (20.0-45.0); MEAN CORPUSCULAR VOLUME 96 FL (80-99); MONOCYTES % (AUTO) 5.9 % (1.0-10.0); NEUTROPHILS % (AUTO) 69.5 % (45.0-75.0); PLATELET COUNT 249 K/UL (150-450); RED BLOOD COUNT 3.01 M/UL (4.20-5.40); RED CELL DISTRIBUTION WIDTH 11.5 % (11.6-14.8); WHITE BLOOD COUNT 8.7 K/UL (4.8-10.8)
[2019-01-02 12:00] VITALS: BP 115/58
--- NOTE | 2019-01-02 13:00 | NUR ---
NURSE NOTES: Stress test done at bedside with Dr Ayon at bedside. Pt tolerated well, currently asymptomatic, resting in bed in stable condition, asking for her lunch tray. Family at bedside. Per Dr Mckoy, notify MD once stress test results are back.
--- NOTE | 2019-01-02 13:45 | Nephrology Progress Note ---
Assessment/Plan Problem List: (1) CKD (chronic kidney disease) stage 5, GFR less than 15 ml/min (2) Diabetic nephropathy (3) ACS (acute coronary syndrome) (4) Hypertension (5) Dyslipidemia Assessment CKD: Diabetic/Hypertensive Nephropathy CAD, ACS HTN Morbid Obesity Plan Avoid Nephrotoxics Keep BP and BS in check Anemia grande SQ EPO Per cardio Subjective ROS Limited/Unobtainable: No Constitutional: Reports: malaise Objective Objective Last 24 Hour Vital Signs Date Time Temp Pulse Resp B/P (MAP) Pulse Ox O2 Delivery O2 Flow Rate FiO2 01/02/19 09:31 98.4 01/02/19 09:00 Room Air 01/02/19 08:00 98.8 64 18 137/66 (89) 97 64 01/02/19 05:35 130/61 01/02/19 04:40 59 01/02/19 04:00 98.4 64 18 130/61 (84) 98 64 01/02/19 00:07 98.2 60 18 125/56 (79) 97 62 01/02/19 00:00 60 01/01/19 22:00 126/65 01/01/19 21:00 Room Air 01/01/19 20:49 60 126/65 01/01/19 20:01 99 01/01/19 20:00 61 01/01/19 20:00 97.9 60 18 126/65 (85) 60 01/01/19 16:00 97.1 58 18 122/60 (80) 58 01/01/19 15:35 59 01/01/19 14:30 112/58 Intake and Output 01/01/19 01/02/19 18:59 06:59 Intake Total 740 ml Balance 740 ml Intake Oral 740 ml # Voids 3 2 Laboratory Tests 01/01/19 17:50: White Blood Count 9.3, Red Blood Count 2.90L, Hemoglobin 9.4L, Hematocrit 28.2L , Mean Corpuscular Volume 97, Mean Corpuscular Hemoglobin 32.4H, Mean Corpuscular Hemoglobin Concent 33.4, Red Cell Distribution Width 11.8, Platelet Count 259, Mean Platelet Volume 5.1L, Neutrophils (%) (Auto) 66.7, Lymphocytes ( %) (Auto) 24.1, Monocytes (%) (Auto) 6.4, Eosinophils (%) (Auto) 2.1, Basophils (%) (Auto) 0.7, Differential Total Cells Counted 100, Neutrophils % (Manual) 59 , Lymphocytes % (Manual) 25, Monocytes % (Manual) 10, Eosinophils % (Manual) 2, Basophils % (Manual) 1, Band Neutrophils 3, Other Cell Type Pathologist comment , Platelet Estimate Adequate, Platelet Morphology Normal, Anisocytosis 1+, Prothrombin Time 10.1, Prothromb Time International Ratio 1.0, Calcium (Send out ) [Pending], Parathyroid Hormone (Intact) [Pending] 01/02/19 06:15: Sodium Level 134L, Potassium Level 4.7, Chloride Level 102, Carbon Dioxide Level 22, Anion Gap 10, Blood Urea Nitrogen 67H, Creatinine 3.6H, Estimat Glomerular Filtration Rate 12.8, Glucose Level 178H, Uric Acid 7.3H, Calcium Level 8.7, Phosphorus Level 5.2H, Magnesium Level 3.0H, Total Bilirubin 0.3, Gamma Glutamyl Transpeptidase 33, Aspartate Amino Transf (AST/SGOT) 20, Alanine Aminotransferase (ALT/SGPT) 25, Alkaline Phosphatase 75, Total Creatine Kinase 152, Total Protein 7.0, Albumin 2.9L, Globulin 4.1, Albumin/Globulin Ratio 0.7L 01/02/19 08:00: White Blood Count 8.7, Red Blood Count 3.01L, Hemoglobin 9.6L, Hematocrit 29.0L , Mean Corpuscular Volume 96, Mean Corpuscular Hemoglobin 31.9H, Mean Corpuscular Hemoglobin Concent 33.1, Red Cell Distribution Width 11.5L, Platelet Count 249, Mean Platelet Volume 5.5L, Neutrophils (%) (Auto) 69.5, Lymphocytes (%) (Auto) 21.3, Monocytes (%) (Auto) 5.9, Eosinophils (%) (Auto) 2.8, Basophils (%) (Auto) 0.6 Height (Feet): 5 Height (Inches): 3.00 Weight (Pounds): 160 General Appearance: no apparent distress Objective no change Rafael Swan MD Jan 02, 2019 13:45
--- NOTE | 2019-01-02 14:49 | General Progress Note ---
Subjective Date patient seen: Jan 02, 2019 Allergies: Coded Allergies: No Known Allergies (Unverified , 04/06/15) Subjective Pt states she is doing well, has no complaints Objective Last 24 Hour Vital Signs Date Time Temp Pulse Resp B/P (MAP) Pulse Ox O2 Delivery O2 Flow Rate FiO2 01/02/19 14:26 137/66 01/02/19 09:31 98.4 01/02/19 09:00 Room Air 01/02/19 08:00 98.8 64 18 137/66 (89) 97 64 01/02/19 05:35 130/61 01/02/19 04:40 59 01/02/19 04:00 98.4 64 18 130/61 (84) 98 64 01/02/19 00:07 98.2 60 18 125/56 (79) 97 62 01/02/19 00:00 60 01/01/19 22:00 126/65 01/01/19 21:00 Room Air 01/01/19 20:49 60 126/65 01/01/19 20:01 99 01/01/19 20:00 61 01/01/19 20:00 97.9 60 18 126/65 (85) 60 01/01/19 16:00 97.1 58 18 122/60 (80) 58 01/01/19 15:35 59 Intake and Output 01/01/19 01/02/19 18:59 06:59 Intake Total 740 ml Balance 740 ml Intake Oral 740 ml # Voids 3 2 Laboratory Tests 01/01/19 17:50: White Blood Count 9.3, Red Blood Count 2.90L, Hemoglobin 9.4L, Hematocrit 28.2L , Mean Corpuscular Volume 97, Mean Corpuscular Hemoglobin 32.4H, Mean Corpuscular Hemoglobin Concent 33.4, Red Cell Distribution Width 11.8, Platelet Count 259, Mean Platelet Volume 5.1L, Neutrophils (%) (Auto) 66.7, Lymphocytes ( %) (Auto) 24.1, Monocytes (%) (Auto) 6.4, Eosinophils (%) (Auto) 2.1, Basophils (%) (Auto) 0.7, Differential Total Cells Counted 100, Neutrophils % (Manual) 59 , Lymphocytes % (Manual) 25, Monocytes % (Manual) 10, Eosinophils % (Manual) 2, Basophils % (Manual) 1, Band Neutrophils 3, Other Cell Type Pathologist comment , Platelet Estimate Adequate, Platelet Morphology Normal, Anisocytosis 1+, Prothrombin Time 10.1, Prothromb Time International Ratio 1.0, Calcium (Send out ) [Pending], Parathyroid Hormone (Intact) [Pending] 01/02/19 06:15: Sodium Level 134L, Potassium Level 4.7, Chloride Level 102, Carbon Dioxide Level 22, Anion Gap 10, Blood Urea Nitrogen 67H, Creatinine 3.6H, Estimat Glomerular Filtration Rate 12.8, Glucose Level 178H, Uric Acid 7.3H, Calcium Level 8.7, Phosphorus Level 5.2H, Magnesium Level 3.0H, Total Bilirubin 0.3, Gamma Glutamyl Transpeptidase 33, Aspartate Amino Transf (AST/SGOT) 20, Alanine Aminotransferase (ALT/SGPT) 25, Alkaline Phosphatase 75, Total Creatine Kinase 152, Total Protein 7.0, Albumin 2.9L, Globulin 4.1, Albumin/Globulin Ratio 0.7L 01/02/19 08:00: White Blood Count 8.7, Red Blood Count 3.01L, Hemoglobin 9.6L, Hematocrit 29.0L , Mean Corpuscular Volume 96, Mean Corpuscular Hemoglobin 31.9H, Mean Corpuscular Hemoglobin Concent 33.1, Red Cell Distribution Width 11.5L, Platelet Count 249, Mean Platelet Volume 5.5L, Neutrophils (%) (Auto) 69.5, Lymphocytes (%) (Auto) 21.3, Monocytes (%) (Auto) 5.9, Eosinophils (%) (Auto) 2.8, Basophils (%) (Auto) 0.6 Height (Feet): 5 Height (Inches): 3.00 Weight (Pounds): 160 General Appearance: no apparent distress, alert EENT: PERRL/EOMI, normal ENT inspection, TMs normal Neck: non-tender, normal alignment, supple, normal inspection Cardiovascular: normal peripheral pulses, normal rate, regular rhythm, no gallop/murmur, no JVD Respiratory/Chest: chest wall non-tender, lungs clear, normal breath sounds, no respiratory distress, no accessory muscle use Abdomen: normal bowel sounds, non tender, soft, no organomegaly, no mass Extremities: normal range of motion, non-tender, normal inspection Edema: no edema noted Arm (L), no edema noted Arm (R), no edema noted Leg (L), no edema noted Leg (R), no edema noted Pedal (L), no edema noted Pedal (R), no edema noted Generalized Neurologic: unit assistant II-XII grossly normal Skin: normal pigmentation, warm/dry Yanira Mckoy MD Jan 02, 2019 14:49
--- NOTE | 2019-01-02 15:58 | Cardiology Progress Note ---
Assessment/Plan Status: stable Assessment/Plan Assessment/Plan Assessment/Plan Status: stable, tolerating diet Assessment/Plan Assessment (1) CKD (chronic kidney disease) stage 3, GFR 30-59 ml/min (2) Hypertension (3) Uncontrolled type 2 diabetes mellitus with chronic kidney disease (4) Dyslipidemia (5) CAD S/P percutaneous coronary angioplasty No evidence of ACS on EKG and troponin but patient high risk Will order lexiscan cardioltie for wednesday Echo to evaluate LV function Continue aspirin/plavix Hold heparin nitro prn chest pain Continue statin Continue Bp control with norvasc and hydralazine, hold ACEI/ARB given CKD Aggressive glucose control D/c chlorthalidone due to risk of electrolyte derangement Subjective Cardiovascular: Reports: no symptoms Respiratory: Reports: no symptoms Gastrointestinal/Abdominal: Reports: no symptoms Genitourinary: Reports: no symptoms Subjective No acute events, no chest pain, for stress test in AM Objective Last 24 Hour Vital Signs Date Time Temp Pulse Resp B/P (MAP) Pulse Ox O2 Delivery O2 Flow Rate FiO2 01/02/19 14:26 137/66 01/02/19 09:31 98.4 01/02/19 09:00 Room Air 01/02/19 08:00 98.8 64 18 137/66 (89) 97 64 01/02/19 05:35 130/61 01/02/19 04:40 59 01/02/19 04:00 98.4 64 18 130/61 (84) 98 64 01/02/19 00:07 98.2 60 18 125/56 (79) 97 62 01/02/19 00:00 60 01/01/19 22:00 126/65 01/01/19 21:00 Room Air 01/01/19 20:49 60 126/65 01/01/19 20:01 99 01/01/19 20:00 61 01/01/19 20:00 97.9 60 18 126/65 (85) 60 01/01/19 16:00 97.1 58 18 122/60 (80) 58 General Appearance: no apparent distress, alert EENT: PERRL/EOMI, normal ENT inspection, TMs normal Neck: non-tender, normal alignment, supple, normal inspection, no JVD Rhythm: NSR Cardiovascular: normal peripheral pulses, normal rate, regular rhythm Respiratory/Chest: chest wall non-tender, lungs clear, normal breath sounds, no respiratory distress, no accessory muscle use Abdomen: normal bowel sounds, non tender, soft, no organomegaly, no mass Extremities: normal range of motion, non-tender, normal inspection, no calf tenderness, no swelling Neurologic: studio operations engineer in charge II-XII grossly normal, no motor/sensory deficits Intake and Output 01/01/19 01/02/19 19:00 07:00 Intake Total 740 ml Balance 740 ml Intake Oral 740 ml # Voids 3 2 Laboratory Tests Test 01/01/19 17:50 01/02/19 06:15 01/02/19 08:00 White Blood Count 9.3 K/UL (4.8-10.8) 8.7 K/UL (4.8-10.8) Red Blood Count 2.90 M/UL (4.20-5.40) L 3.01 M/UL (4.20-5.40) L Hemoglobin 9.4 G/DL (12.0-16.0) L 9.6 G/DL (12.0-16.0) L Hematocrit 28.2 % (37.0-47.0) L 29.0 % (37.0-47.0) L Mean Corpuscular Volume 97 FL (80-99) 96 FL (80-99) Mean Corpuscular Hemoglobin 32.4 PG (27.0-31.0) H 31.9 PG (27.0-31.0) H Mean Corpuscular Hemoglobin Concent 33.4 G/DL (32.0-36.0) 33.1 G/DL (32.0-36.0) Red Cell Distribution Width 11.8 % (11.6-14.8) 11.5 % (11.6-14.8) L Platelet Count 259 K/UL (150-450) 249 K/UL (150-450) Mean Platelet Volume 5.1 FL (6.5-10.1) L 5.5 FL (6.5-10.1) L Neutrophils (%) (Auto) 66.7 % (45.0-75.0) 69.5 % (45.0-75.0) Lymphocytes (%) (Auto) 24.1 % (20.0-45.0) 21.3 % (20.0-45.0) Monocytes (%) (Auto) 6.4 % (1.0-10.0) 5.9 % (1.0-10.0) Eosinophils (%) (Auto) 2.1 % (0.0-3.0) 2.8 % (0.0-3.0) Basophils (%) (Auto) 0.7 % (0.0-2.0) 0.6 % (0.0-2.0) Differential Total Cells Counted 100 Neutrophils % (Manual) 59 % (45-75) Lymphocytes % (Manual) 25 % (20-45) Monocytes % (Manual) 10 % (1-10) Eosinophils % (Manual) 2 % (0-3) Basophils % (Manual) 1 % (0-2) Band Neutrophils 3 % (0-8) Other Cell Type Pathologist comment Platelet Estimate Adequate Platelet Morphology Normal Anisocytosis 1+ Prothrombin Time 10.1 SEC (9.30-11.50) Prothromb Time International Ratio 1.0 (0.9-1.1) Calcium (Send out) Pending Parathyroid Hormone (Intact) Pending Sodium Level 134 MMOL/L (136-145) L Potassium Level 4.7 MMOL/L (3.5-5.1) Chloride Level 102 MMOL/L (98-107) Carbon Dioxide Level 22 MMOL/L (21-32) Anion Gap 10 mmol/L (5-15) Blood Urea Nitrogen 67 mg/dL (7-18) H Creatinine 3.6 MG/DL (0.55-1.30) H Estimat Glomerular Filtration Rate 12.8 mL/min (>60) Glucose Level 178 MG/DL (74-106) H Uric Acid 7.3 MG/DL (2.6-7.2) H Calcium Level 8.7 MG/DL (8.5-10.1) Phosphorus Level 5.2 MG/DL (2.5-4.9) H Magnesium Level 3.0 MG/DL (1.8-2.4) H Total Bilirubin 0.3 MG/DL (0.2-1.0) Gamma Glutamyl Transpeptidase 33 U/L (5-85) Aspartate Amino Transf (AST/SGOT) 20 U/L (15-37) Alanine Aminotransferase (ALT/SGPT) 25 U/L (12-78) Alkaline Phosphatase 75 U/L (46-116) Total Creatine Kinase 152 U/L (26-308) Total Protein 7.0 G/DL (6.4-8.2) Albumin 2.9 G/DL (3.4-5.0) L Globulin 4.1 g/dL Albumin/Globulin Ratio 0.7 (1.0-2.7) L Lonny Pandya MD Jan 02, 2019 15:58
[2019-01-02 16:00] VITALS: BP 135/64
--- NOTE | 2019-01-02 16:19 | Diagnostic Imaging Report ---
Indications: 63-year-old female with chest pain Technique: Single day single isotope protocol utilized. Initially, resting images obtained using IV administration 10.8 millicuries 99M technetium Myoview. Subsequently, patient underwent lexiscan stress testing. See cardiology report for details. During adenosine infusion, IV administration 31.4 mCi 99 M technetium Myoview. SPECT and planar images obtained. SPECT images gated to 8 phases of the cardiac cycle were also obtained, and reformatted into cine images for evaluation of ejection fraction. Comparison: none Findings: Per cardiology report, patient experienced no symptoms. Per cardiology report, resting EKG demonstrates sinus bradycardia, with nonspecific ST-T wave abnormality. Presence or absence of ST changes during infusion is not described in the cardiology report. Imaging demonstrates normal poststress perfusion, no fixed nor reversible post stress perfusion defects demonstrated. Normal cardiac chamber size. Calculated post stress ejection fraction 71%. No focal wall motion abnormality demonstrated Impression: Nonischemic clinical response to pharmacologic stress, per cardiology report Nonischemic electrocardiographic response to pharmacologic stress, per cardiology report No imaging findings to suggest ischemia, at level of stress achieved. Calculated post stress ejection fraction greater than 70%
[2019-01-02] MEDS ORDERED: RENVELA800 MG ORAL (17:15)
--- NOTE | 2019-01-02 17:16 | Discharge Instructions ---
Discharge Instructions Discharge Instructions Diet: diabetic calorie control, cardiac 2 GM Na, low fat Resume Normal Activity?: Yes Activity: as tolerated For Congestive Heart Failure Reminder Report to your physician any weight gain of 5 pounds or more in one week. Yanira Mckoy MD Jan 02, 2019 17:16
--- NOTE | 2019-01-02 18:00 | NUR ---
NURSE NOTES: Order received to discharge pt from DR Mckoy, will follow as instructed.
--- NOTE | 2019-01-02 19:46 | NUR ---
HAND-OFF: Report given to Selma HUMPHREYS. Endorsed pt's discharge order. Tele monitor removed and returned to copier and printer field technician, IV access removed. Family contacted to peanut picker pt. Selma HUMPHREYS will provide discharge instructions and check belonging's list with pt. Pt is currently for family to pick her up.
--- NOTE | 2019-01-02 20:30 | NUR ---
NURSE NOTES: Received report from Yazmin Mims RN at 1930. Pt was sitting in the chair wearing her own clothes, no distress noted in RA. IV and supervisor metal furniture fabrication were off previously. Family came at 2014. Pt was discharged accompanied by her family member w/o incident.
[2019-01-02] MEDS ORDERED: Epoetin Alfa-EPBX (NON ESRD)10,000 unit/ml vial SUBQ SCH (21:00)
--- NOTE | 2019-01-03 | General Progress Note ---
Assessment/Plan Assessment/Plan Assessment and Recs: # Anemia of chronic disease -- likely related to renal disease --> Anemia workup has been ordered/reviewed and c/w acd --> No evidence of hemolysis is noted, peripheral smear has been reviewed. --> Hgb goal >7. Transfuse prn. --> Epogen has been started sq, goal hgb 10 range --> Medications have been reviewed # Chest pain of uncertain etiology Rule out acs with serial EKGs/troponins --> Cont cardiac monitoring. Consider Echo --> appreciate cards recs --> Troponins initially neg # CKD (chronic kidney disease) stage 5, GFR less than 15 ml/min --> current cr is worse compared to baseline, appears to be 3.-4 range now --> epogen has been started # Uncontrolled type 2 diabetes mellitus with chronic kidney disease --> Cont insulin sliding scale, sugars stable for now --> hgb a1c goal <10SNOMED: [id number], [id number], [id number] # Acute hyponatremia # Hypertension --> Cont coreg/chlorthalidone/norvasc --> sbp goal <140 The timing of this note does not necessarily reflect the time of the patient was seen. Greatly appreciate consultation! Subjective Constitutional: Denies: no symptoms, chills, diaphoresis, fever, malaise, weakness, other HEENT: Denies: no symptoms, eye pain, blurred vision, tearing, double vision, ear pain, ear discharge, nose pain, nose congestion, throat pain, throat swelling, mouth pain, mouth swelling, other Cardiovascular: Denies: no symptoms, chest pain, edema, irregular heart rate, lightheadedness, palpitations, syncope, other Respiratory: Denies: no symptoms, cough, orthopnea, shortness of breath, SOB with excertion, SOB at rest, sputum, stridor, wheezing, other Gastrointestinal/Abdominal: Denies: no symptoms, abdomen distended, abdominal pain, black stools, tarry stools, blood in stool, constipated, diarrhea, difficulty swallowing, nausea, poor appetite, poor fluid intake, rectal bleeding , vomiting, other Genitourinary: Denies: no symptoms, burning, discharge, frequency, flank pain, hematuria, incontinence, pain, urgency, other Neurologic/Psychiatric: Denies: no symptoms, anxiety, depressed, emotional problems, headache, numbness, paresthesia, pre-existing deficit, seizure, tingling, tremors, weakness, other Endocrine: Denies: no symptoms, excessive sweating, flushing, intolerance to cold, intolerance to heat, increased hunger, increased thirst, increased urine, unexplained weight gain, unexplained weight loss, other Hematologic/Lymphatic: Denies: no symptoms, anemia, easy bleeding, easy bruising, other Allergies: Coded Allergies: No Known Allergies (Unverified , 04/06/15) Subjective 3/4: seen by bedside, awake, comfortable, denies acute distress. Objective Last 24 Hour Vital Signs Date Time Temp Pulse Resp B/P (MAP) Pulse Ox O2 Delivery O2 Flow Rate FiO2 01/02/19 16:00 98.1 61 18 135/64 (87) 100 61 01/02/19 16:00 60 01/02/19 14:56 98.4 01/02/19 14:26 137/66 01/02/19 12:00 57 01/02/19 12:00 97.9 55 18 115/58 (77) 99 55 01/02/19 09:00 Room Air 01/02/19 08:00 98.8 64 18 137/66 (89) 97 64 01/02/19 08:00 63 01/02/19 05:35 130/61 01/02/19 04:40 59 01/02/19 04:00 98.4 64 18 130/61 (84) 98 64 01/02/19 00:07 98.2 60 18 125/56 (79) 97 62 01/02/19 00:00 60 Intake and Output 01/01/19 01/02/19 19:00 07:00 Intake Total 740 ml Balance 740 ml Intake Oral 740 ml # Voids 3 2 Laboratory Tests 01/02/19 06:15: Sodium Level 134L, Potassium Level 4.7, Chloride Level 102, Carbon Dioxide Level 22, Anion Gap 10, Blood Urea Nitrogen 67H, Creatinine 3.6H, Estimat Glomerular Filtration Rate 12.8, Glucose Level 178H, Uric Acid 7.3H, Calcium Level 8.7, Phosphorus Level 5.2H, Magnesium Level 3.0H, Total Bilirubin 0.3, Gamma Glutamyl Transpeptidase 33, Aspartate Amino Transf (AST/SGOT) 20, Alanine Aminotransferase (ALT/SGPT) 25, Alkaline Phosphatase 75, Total Creatine Kinase 152, Total Protein 7.0, Albumin 2.9L, Globulin 4.1, Albumin/Globulin Ratio 0.7L 01/02/19 08:00: White Blood Count 8.7, Red Blood Count 3.01L, Hemoglobin 9.6L, Hematocrit 29.0L , Mean Corpuscular Volume 96, Mean Corpuscular Hemoglobin 31.9H, Mean Corpuscular Hemoglobin Concent 33.1, Red Cell Distribution Width 11.5L, Platelet Count 249, Mean Platelet Volume 5.5L, Neutrophils (%) (Auto) 69.5, Lymphocytes (%) (Auto) 21.3, Monocytes (%) (Auto) 5.9, Eosinophils (%) (Auto) 2.8, Basophils (%) (Auto) 0.6 Height (Feet): 5 Height (Inches): 3.00 Weight (Pounds): 160 Objective Physical Exam General Appearance: WD/WN, no apparent distress, alert HEENT: normocephalic, atraumatic Neck: non-tender, normal alignment, supple, normal inspection Respiratory/Chest: lungs clear, normal breath sounds, Cardiovascular/Chest: normal peripheral pulses Abdomen: normal bowel sounds, non tender, soft, no organomegaly Extremities: normal range of motion, nt Roscoe Sandy MD Jan 03, 2019 00:00
--- NOTE | 2019-01-03 14:25 | NUR ---
*-* INSURANCE *-* CLINICALS, REVIEWS HAVE BEEN FAXED TO: [employer] MANZO NCM: ILIANA DE JESUS P:[phone] F:[phone] TR# [id number]
--- NOTE | 2019-01-04 01:30 | Cardiology Report ---
APPROVED REPORT EKG Measurement Heart [id number] Normal sinus rhythm Normal ECG
--- NOTE | 2019-01-04 21:23 | Discharge Summary ---
Discharge Summary Hospital Course Date of Admission Dec 30, 2018 at 19:58 Date of Discharge Jan 02, 2019 at 20:25 Admitting Diagnosis CHEST PAIN,ACS Reason for Hospitalization: rule out ACS HPI Luz Valenzuela is a 63 year old female who was admitted on Dec 30, 2018 at 19:58 for Chest Pain/Acute Coronary Syndrome Consultations Cardiology Hospital Course During hospitalization pts serial troponins and EKG with no evidence of ACS, cardiac stress test was negative. Pt also noted to have EMILIANO on CKD, ACEI/ARB was held, BP controlled with norvasc and hydralazine, chlorthalidone was discontinued due to risk of electrolyte derangement. On discharge, pt was ambulating with a stable gait, NAD, HDS and tolerating PO intake. Discharge Medications New Medications: Sevelamer Carbonate (Renvela) 800 Mg Tablet 800 MG ORAL THREE TIMES A DAY for 30 Days, #90 TAB Continued Medications: Amlodipine Besylate (Norvasc) 10 Mg Tab 10 MG ORAL DAILY for 30 Days, TAB Aspirin (Ecotrin) 81 Mg Tabec 81 MG ORAL DAILY for 30 Days, TAB Atorvastatin (Lipitor) 80 Mg Tab 80 MG ORAL QHS for 30 Days, TAB Carvedilol (Coreg) 12.5 Mg Tab 12.5 MG ORAL BID for 30 Days, TAB Clopidogrel Bisulfate* (Plavix*) 75 Mg Tab 75 MG ORAL DAILY for 30 Days, TAB Docusate Sodium* (Colace*) 100 Mg Cap 100 MG ORAL EVERY 12 HOURS for 30 Days, CAP Ergocalciferol (Vitamin D2)* (Vitamin D*) 50,000 Unit Capsule 24135 UNIT ORAL ONCE A WEEK, CAP (This prescription has been renewed) Hydralazine Hcl* (Hydralazine Hcl*) 50 Mg Tablet 50 MG ORAL EVERY 8 HOURS, TAB (This prescription has been renewed) Insulin Aspart (Novolog Flexpen) 100 Units/Ml Pen 0 UNITS SUBQ BEFORE MEALS AND HS for 30 Days, EA Omeprazole (Omeprazole) 20 Mg Capsule.dr 20 MG ORAL DAILY, CAP (This prescription has been renewed) Pantoprazole* (Protonix*) 40 Mg Tabec 40 MG ORAL DAILY for 30 Days, TAB Sertraline Hcl* (Sertraline Hcl*) 25 Mg Tablet 50 MG ORAL DAILY, TAB (This prescription has been renewed) Sodium Bicarbonate* (Nahco3*) 650 Mg Tablet 650 MG PO BID, TAB (This prescription has been renewed) Discontinued Medications: Atorvastatin Calcium* (Atorvastatin Calcium*) 40 Mg Tablet 80 MG ORAL BEDTIME, TAB Carvedilol* (Carvedilol*) 25 Mg Tablet 25 MG ORAL DAILY, TAB Chlorthalidone* (Chlorthalidone*) 25 Mg Tablet 25 MG ORAL DAILY, TAB Docusate Sodium* (Docusate Sodium*) 100 Mg Capsule 100 MG ORAL DAILY, CAP Discharge Discharge Disposition Patient was discharged to Home (01) Discharge Instructions Discharge Instructions Activity: as tolerated Yanira Mckoy MD Jan 04, 2019 21:23
--- NOTE | 2019-01-17 16:08 | Physician Query ---
--------- THIS DOCUMENT IS A PERMANENT PART OF THE MEDICAL RECORD --------- PLEASE COMPLETE THE DOCUMENT BEFORE SIGNING Dear Dr. Mckoy Date 01/17/19 Lime Slaker/CDS' Name: Marge Ricardo, CCS, CLOTHES SEPARATOR Exercise your independent professional judgment when responding to query. Questions asked do not imply particular answer is desired or expected. We greatly appreciate your clarification on this issue. Clinical Documentation States:Admitting Diagnosis CHEST PAIN,ACS Reason for Hospitalization: rule out ACS JOSE ALBERTO - Luz Valenzuela is a 63 year old female who was admitted on Dec 30, 2018 at 19:58 for Chest Pain/Acute Coronary Syndrome Consultations:Cardiology Hospital Course:During hospitalization pts serial troponins and EKG with no evidence of ACS, cardiac stress test was negative. Pt also noted to have EMILIANO on CKD, ACEI/ARB was held, BP controlled with norvasc and hydralazine, chlorthalidone was discontinued due to risk of electrolyte derangement. On discharge, pt was ambulating with a stable gait, NAD, HDS and tolerating PO intake. Clinical Findings Show: EKG = NSR Troponin = NEGATIVE 0.0 ECHO = NON ISCHEMIC Please document the suspected etiology of Chest Pain: a.Type: []Cardiac []Non-cardiac []Unspecified b.Etiology - cardiac [] Aortic dissection []Mitral valve prolapsed [] Acute myocardial infarction []Spasm of coronary arteries [] Coronary Artery Disease []Pericarditis c.Etiology - non-cardiac [] Anxiety []Pleurisy [] Cancer []Pneumonia, type [] Costochondritis []Pneumothorax [] GERD/Esophagitis []Pulmonary embolism [] Unable to determine []Other: Yanira Vu, M.D. Date & time MTDD
--- NOTE | 2019-01-21 00:24 | Cardiology Report ---
APPROVED REPORT EKG Measurement Heart [id number] Normal sinus rhythm Moderate voltage criteria for LVH, may be normal variant Borderline ECG
== END 2019-01-02 20:25 | disposition home or self-care (01) | DRG 198 ==
LOC: EMR 15:40 → 2E 19:58 → EDBEDREQ 20:13
DX: R07.89 Other chest pain (principal); I25.10 Atherosclerotic heart disease of native coronary artery without angina pectoris; E11.22 Type 2 diabetes mellitus with diabetic chronic kidney disease; N18.5 Chronic kidney disease, stage 5; F41.9 Anxiety disorder, unspecified; I12.9 Hypertensive chronic kidney disease with stage 1 through stage 4 chronic kidney disease, or unspecified chronic kidney disease; E78.5 Hyperlipidemia, unspecified; Z95.5 Presence of coronary angioplasty implant and graft; E11.65 Type 2 diabetes mellitus with hyperglycemia; E87.1 Hypo-osmolality and hyponatremia; Z79.4 Long term (current) use of insulin; E66.01 Morbid (severe) obesity due to excess calories
CPT/HCPCS: 36415; 71045; 78452; 80048; 80053; 80061; 81003; 82550; 82553; 82607; 82728; 82746; 82962; 82977; 83036; 83540; 83550; 83690; 83735; 83880; 83970; 84100; 84443; 84484; 84550; 85007; 85025; 85060; 85610; 86140; 93005; 93017; 99285; J1815; J2405; J2785

== ENCOUNTER 2019-10-21 16:07 | Emergency (ER) | payer OTHER ==
[~2019-10-21] VITALS: Ht 152.4 cm; Wt 76.2 kg
[~2019-10-21 16:07] MED LIST changes: +ATORVASTATIN CA40 MG ORAL; +CHLORTHALIDONE25 MG ORAL; +HYDRALAZINE HCL50 MG ORAL; +OMEPRAZOLE20 M2 ORAL; +RENVELA800 MG ORAL; +SERTRALINE HCL25 MG ORAL; +SODIUM BICARBO650 MG PO
--- NOTE | 2019-10-21 16:40 | NUR ---
ED Nurse Note: Patient ambulated into ER with a c/o fever and chills x 2days. PAtient is aaox4, on room air and khmer speaking. Patient daughter is bedside. Patient placed in gown and on cardiac monitors.
--- NOTE | 2019-10-21 16:42 | Emergency Room Report ---
History of Present Illness General Chief Complaint: Chest Pain Source: Medical Record Present Illness HPI Patient is a 63-year-old female difficulty with breathing. She reports of being sick for the past 3 to 4 days. She reported having had a subjective fever as well as increased headache. Nonproductive cough. Patient had prior history of diabetes. She had run out of several of her diabetic medications. These had been represcribed by her primary care physician who she saw yesterday. Patient reports have increased generalized body aches. She denies any vomiting or diarrhea. Allergies: Coded Allergies: No Known Allergies (Unverified , 04/06/15) Patient History Past Medical History: see triage record Reviewed Nursing Documentation: PMH: Agreed; PSxH: Agreed Nursing Documentation-PMH Past Medical History: No History, Except For Hx Cardiac Problems: Yes Hx Hypertension: Yes Hx Diabetes: Yes Hx Cancer: No Hx Gastrointestinal Problems: Yes Hx Neurological Problems: Yes Hx Headaches: Yes Hx Weakness: Yes Review of Systems All Other Systems: negative except mentioned in HPI Physical Exam Vital Signs Date Time Temp Pulse Resp B/P (MAP) Pulse Ox O2 Delivery O2 Flow Rate FiO2 10/21/19 16:20 99.3 86 16 141/61 (87) 97 Room Air Sp02 EP Interpretation: reviewed, normal General Appearance: normal inspection, well appearing, no apparent distress, alert, GCS 15, non-toxic Head: atraumatic ENT: normal ENT inspection, hearing grossly normal, normal voice Neck: normal inspection, full range of motion, supple, no bony tend Respiratory: normal inspection, lungs clear, normal breath sounds, no respiratory distress, no retraction, no wheezing Cardiovascular #1: regular rate, rhythm, no edema Gastrointestinal: normal inspection, normal bowel sounds, non tender, soft, no guarding, no hernia Genitourinary: no CVA tenderness Musculoskeletal: normal inspection, back normal, normal range of motion Neurologic: alert, motor strength/tone normal, family therapist III-XII nml as tested, EOM palsy, responsive, speech normal, normal inspection Psychiatric: normal inspection, judgement/insight normal, mood/affect normal Medical Decision Making Diagnostic Impression: Primary Impression: Nonspecific chest pain Additional Impression: CKD (chronic kidney disease) stage 5, GFR less than 15 ml/min ER Course Presented for chest pain. Differential diagnosis included but was not limited to acute coronary syndrome, pulmonary embolism, pneumonia, aortic dissection, shingles, pneumothorax, aortic dissection, esophageal rupture, pericarditis. Patient's laboratory testing showed normal white blood count as well as a elevation of BUN/creatinine which is somewhat improved from prior visit. Troponin was negative EKG showed normal sinus rhythm without acute ST or T wave changes. CXR showed chest x-ray 1 view read by radiology showed normal lung foote without evident infiltrate and mild vascular congestion Patient appears to have chest pain appears to be viral in nature. There may be some slight infiltrate and so patient will be given a prescription for oral antibiotics. She was advised to follow-up with her primary care physician for recheck. The patient is advised to follow up with primary care doctor in 1-2 days. Patient is advised to return if any worsening condition or if any changes in status that are concerning. This report is dictated with [employer] mower sharpener software which may occasionally lead to discrepancies related to use of this software. Labs Test 10/21/19 17:00 10/21/19 18:00 10/21/19 18:20 White Blood Count 9.5 K/UL (4.8-10.8) Red Blood Count 3.19 M/UL (4.20-5.40) Hemoglobin 10.1 G/DL (12.0-16.0) Hematocrit 30.2 % (37.0-47.0) Mean Corpuscular Volume 95 FL (80-99) Mean Corpuscular Hemoglobin 31.6 PG (27.0-31.0) Mean Corpuscular Hemoglobin Concent 33.4 G/DL (32.0-36.0) Red Cell Distribution Width 12.0 % (11.6-14.8) Platelet Count 215 K/UL (150-450) Mean Platelet Volume 5.9 FL (6.5-10.1) Neutrophils (%) (Auto) 68.3 % (45.0-75.0) Lymphocytes (%) (Auto) 19.4 % (20.0-45.0) Monocytes (%) (Auto) 7.4 % (1.0-10.0) Eosinophils (%) (Auto) 3.6 % (0.0-3.0) Basophils (%) (Auto) 1.4 % (0.0-2.0) Urine Color Pale yellow Urine Appearance Clear Urine pH 5 (4.5-8.0) Urine Specific [place] 1.010 (1.005-1.035) Urine Protein 3+ (NEGATIVE) Urine Glucose (UA) Negative (NEGATIVE) Urine Ketones Negative (NEGATIVE) Urine Blood Negative (NEGATIVE) Urine Nitrite Negative (NEGATIVE) Urine Bilirubin Negative (NEGATIVE) Urine Urobilinogen Normal MG/DL (0.0-1.0) Urine Leukocyte Esterase Negative (NEGATIVE) Urine RBC 0-2 /HPF (0 - 2) Urine WBC 2-4 /HPF (0 - 2) Urine Squamous Epithelial Cells Occasional /LPF Urine Bacteria Occasional /HPF (NONE) Sodium Level 140 MMOL/L (136-145) Potassium Level 4.6 MMOL/L (3.5-5.1) Chloride Level 108 MMOL/L (98-107) Carbon Dioxide Level 19 MMOL/L (21-32) Anion Gap 14 mmol/L (5-15) Blood Urea Nitrogen 55 mg/dL (7-18) Creatinine 3.7 MG/DL (0.55-1.30) Estimat Glomerular Filtration Rate 12.5 mL/min (>60) Glucose Level 139 MG/DL (74-106) Calcium Level 8.2 MG/DL (8.5-10.1) Total Bilirubin 0.2 MG/DL (0.2-1.0) Aspartate Amino Transf (AST/SGOT) 16 U/L (15-37) Alanine Aminotransferase (ALT/SGPT) 20 U/L (12-78) Alkaline Phosphatase 143 U/L (46-116) Troponin I 0.000 ng/mL (0.000-0.056) Total Protein 7.0 G/DL (6.4-8.2) Albumin 3.3 G/DL (3.4-5.0) Globulin 3.7 g/dL Albumin/Globulin Ratio 0.9 (1.0-2.7) Lipase 135 U/L (73-393) Last Vital Signs Date Time Temp Pulse Resp B/P (MAP) Pulse Ox O2 Delivery O2 Flow Rate FiO2 10/21/19 16:20 99.3 86 16 141/61 (87) 97 Room Air Status: improved Disposition: HOME, SELF-CARE Condition: Stable Scripts Acetaminophen* (ACETAMINOPHEN EXTRA STRENGTH*) 500 Mg Tablet 500 MG ORAL Q8H PRN for Fever/Headache/Mild Pain, #20 TAB Prov: Damon Renteria MD 10/21/19 Amoxicillin (AMOXICILLIN) 500 Mg Tablet 500 MG PO TWICE A DAY, #14 TAB Prov: Damon Renteria MD 10/21/19 Damon Renteria MD Oct 21, 2019 16:42
[2019-10-21] MEDS ORDERED: Albuterol ud Inhalation HHN ONE (16:45)
[2019-10-21 16:50] VITALS: BP 141/61
[2019-10-21 17:35] LABS: BASOPHILS % (AUTO) 1.4 % (0.0-2.0); EOSINOPHILS % (AUTO) 3.6 % (0.0-3.0); HEMATOCRIT 30.2 % (37.0-47.0); HEMOGLOBIN 10.1 G/DL (12.0-16.0); LYMPHOCYTES % (AUTO) 19.4 % (20.0-45.0); MEAN CORPUSCULAR VOLUME 95 FL (80-99); MONOCYTES % (AUTO) 7.4 % (1.0-10.0); NEUTROPHILS % (AUTO) 68.3 % (45.0-75.0); PLATELET COUNT 215 K/UL (150-450); RED BLOOD COUNT 3.19 M/UL (4.20-5.40); WHITE BLOOD COUNT 9.5 K/UL (4.8-10.8)
--- NOTE | 2019-10-21 17:51 | Diagnostic Imaging Report ---
EXAM: XR Chest, 1 View CLINICAL HISTORY: SOB TECHNIQUE: Frontal view of the chest. COMPARISON: Chest x-ray dated 12/30/2018 FINDINGS: Lungs: Unremarkable. No consolidation. Pleural space: Unremarkable. No pneumothorax. Heart: Mild prominence of the heart. Mediastinum: Unremarkable. Bones/joints: Unremarkable. IMPRESSION: No acute findings in the chest.
[2019-10-21 19:00] VITALS: BP 127/46
--- NOTE | 2019-10-21 19:19 | NUR ---
HAND-OFF: Report given to PETR Baker.
--- NOTE | 2019-10-21 19:21 | NUR ---
ED Nurse Note: Received report from PETR Owusu.
[2019-10-21 19:25] LABS: APPEARANCE,URINE CLEAR; BILIRUBIN, URINE NEGATIVE (NEGATIVE); COLOR,URINE PALE YELLOW; GLUCOSE, URINE (UA) NEGATIVE (NEGATIVE); KETONES,URINE NEGATIVE (NEGATIVE); LEUKOCYTE ESTERASE ,URINE NEGATIVE (NEGATIVE); NITRITE,URINE NEGATIVE (NEGATIVE); PH,URINE 5 (4.5-8.0); PROTEIN,URINE 3+ (NEGATIVE); UROBILINOGEN,URINE NORMAL MG/DL (0.0-1.0)
[2019-10-21 19:27] LABS: ALANINE AMINOTRANSFERASE 20 U/L (12-78); ALBUMIN 3.3 G/DL (3.4-5.0); ALBUMIN/GLOBULIN RATIO 0.9 (1.0-2.7); ALKALINE PHOSPHATASE 143 U/L (46-116); ANION GAP 14 mmol/L (5-15); ASPARTATE AMINO TRANSFERASE 16 U/L (15-37); BILIRUBIN,TOTAL 0.2 MG/DL (0.2-1.0); BLOOD UREA NITROGEN 55 mg/dL (7-18); CALCIUM 8.2 MG/DL (8.5-10.1); CARBON DIOXIDE 19 MMOL/L (21-32); CHLORIDE 108 MMOL/L (98-107); CREATININE 3.7 MG/DL (0.55-1.30); POTASSIUM 4.6 MMOL/L (3.5-5.1); SODIUM 140 MMOL/L (136-145)
[2019-10-21 19:30] VITALS: BP 127/46
[2019-10-21] MEDS ORDERED: Morphine Sulfate 4mg/ml Inj (IV USE ONLY) IVP ONE (19:45)
[2019-10-21] MEDS ORDERED: cefTRIAXone 1 GM in NS 55 ML IVPB ONE (21:15)
[2019-10-21] MEDS ORDERED: AMOXICILLIN500 M1 PO (21:23)
[2019-10-21] MEDS ORDERED: ACETAMINOPHEN500 M3 ORAL (21:26)
--- NOTE | 2019-10-21 22:02 | NUR ---
ER DISCHARGE NOTE: Patient cleared for discharge per ERMD. Patient given discharge instructions and prescriptions, verbalized understanding. Medical devices, ID band and IV removed intact with no complications. Patient aao x 4 and ambulatory upon discharge. Patient discharged in stable condition accompanied by family.
[2019-10-21 22:04] VITALS: BP 139/48
== END 2019-10-21 22:02 | disposition home or self-care (01) ==
LOC: EMR 17:00
DX: R07.9 Chest pain, unspecified (principal); I12.0 Hypertensive chronic kidney disease with stage 5 chronic kidney disease or end stage renal disease; E11.22 Type 2 diabetes mellitus with diabetic chronic kidney disease; N18.5 Chronic kidney disease, stage 5; R50.9 Fever, unspecified
CPT/HCPCS: 36415; 71045; 80053; 81003; 83690; 84484; 85025; 86710; 87040; 93005; 94640; 94664; 96361; 96365; 96375; J0696; J2270; Z7502; 99284

== ENCOUNTER 2019-11-06 23:47 | Emergency (ER) | payer OTHER ==
[~2019-11-06] VITALS: Ht 162.6 cm; Wt 80.7 kg
[~2019-11-06 23:47] MED LIST changes: +ACETAMINOPHEN500 M3 ORAL; +AMOXICILLIN500 M1 PO
[2019-11-07 00:45] VITALS: BP 140/72
[2019-11-07] MEDS ORDERED: Morphine Sulfate 4mg/ml Inj (IV USE ONLY) IVP ONE (01:30)
[2019-11-07 01:39] LABS: APPEARANCE,URINE CLEAR; BASOPHILS % (AUTO) 0.9 % (0.0-2.0); BILIRUBIN, URINE NEGATIVE (NEGATIVE); COLOR,URINE PALE YELLOW; EOSINOPHILS % (AUTO) 2.6 % (0.0-3.0); GLUCOSE, URINE (UA) NEGATIVE (NEGATIVE); HEMATOCRIT 28.9 % (37.0-47.0); HEMOGLOBIN 9.5 G/DL (12.0-16.0); KETONES,URINE NEGATIVE (NEGATIVE); LEUKOCYTE ESTERASE ,URINE NEGATIVE (NEGATIVE); LYMPHOCYTES % (AUTO) 13.5 % (20.0-45.0); MEAN CORPUSCULAR VOLUME 95 FL (80-99); MONOCYTES % (AUTO) 8.8 % (1.0-10.0); NEUTROPHILS % (AUTO) 74.2 % (45.0-75.0); NITRITE,URINE NEGATIVE (NEGATIVE); PH,URINE 6.5 (4.5-8.0); PLATELET COUNT 230 K/UL (150-450); PROTEIN,URINE 3+ (NEGATIVE); RED BLOOD COUNT 3.04 M/UL (4.20-5.40); RED CELL DISTRIBUTION WIDTH 11.5 % (11.6-14.8); UROBILINOGEN,URINE NORMAL MG/DL (0.0-1.0); WHITE BLOOD COUNT 11.3 K/UL (4.8-10.8)
[2019-11-07 01:50] LABS: ANION GAP 15 mmol/L (5-15); BLOOD UREA NITROGEN 61 mg/dL (7-18); CARBON DIOXIDE 20 MMOL/L (21-32); CHLORIDE 102 MMOL/L (98-107); CREATININE 3.8 MG/DL (0.55-1.30); POTASSIUM 4.8 MMOL/L (3.5-5.1); SODIUM 137 MMOL/L (136-145)
[2019-11-07 01:55] LABS: ALANINE AMINOTRANSFERASE 29 U/L (12-78); ALBUMIN 3.8 G/DL (3.4-5.0); ALBUMIN/GLOBULIN RATIO 0.9 (1.0-2.7); ALKALINE PHOSPHATASE 142 U/L (46-116); ASPARTATE AMINO TRANSFERASE 18 U/L (15-37); BILIRUBIN,TOTAL 0.3 MG/DL (0.2-1.0)
--- NOTE | 2019-11-07 02:01 | Emergency Room Report ---
History of Present Illness General Chief Complaint: Abdominal Pain Source: Patient Present Illness HPI This is a 64-year-old female with history of diabetes, high blood pressure, chronic kidney disease with previous laparotomy. She presents with complaint abdominal pain. Onset for last 3 days. She felt nauseous. No bowel movement. Pain is 8 out of 10. Denies dysuria frequency. Denies any fever chills. Pain is 8 out of 10. Allergies: Coded Allergies: No Known Allergies (Unverified , 04/06/15) Patient History Past Medical History: see triage record, old chart reviewed, DM, HTN, renal disease Past Surgical History: other Pertinent Family History: none Social History: Denies: smoking Now: No Immunizations: other Reviewed Nursing Documentation: PMH: Agreed; PSxH: Agreed Nursing Documentation-PMH Past Medical History: No History, Except For Hx Cardiac Problems: Yes Hx Hypertension: Yes Hx Diabetes: Yes Hx Cancer: No Hx Gastrointestinal Problems: Yes Hx Neurological Problems: Yes Hx Headaches: Yes Hx Weakness: Yes Review of Systems Eye: Denies: eye pain, blurred vision ENT: Denies: ear pain, nose congestion, throat swelling Respiratory: Denies: cough, shortness of breath Cardiovascular: Denies: chest pain, palpitations Gastrointestinal: Reports: abdominal pain, nausea; Denies: diarrhea, vomiting Musculoskeletal: Denies: back pain, joint pain Skin: Denies: rash Neurological: Denies: headache, numbness Endocrine: Denies: increased thirst, increased urine Hematologic/Lymphatic: Denies: easy bruising All Other Systems: negative except mentioned in HPI Physical Exam Vital Signs Date Time Temp Pulse Resp B/P (MAP) Pulse Ox O2 Delivery O2 Flow Rate FiO2 11/07/19 00:14 98.6 98 14 140/72 (94) 98 Room Air Vitals normal Sp02 EP Interpretation: reviewed, normal General Appearance: well appearing, no apparent distress, alert Head: normocephalic, atraumatic Eyes: bilateral eye PERRL, bilateral eye EOMI ENT: hearing grossly normal, normal pharynx Neck: full range of motion, supple, no meningismus Respiratory: chest non-tender, lungs clear, normal breath sounds Cardiovascular #1: regular rate, rhythm, no murmur Gastrointestinal: normal bowel sounds, no mass, no organomegaly, no bruit, non- distended, tenderness - Diffuse Musculoskeletal: back normal, normal range of motion, gait/station normal Psychiatric: mood/affect normal Medical Decision Making Diagnostic Impression: Primary Impression: Abdominal pain Qualified Codes: R10.84 - Generalized abdominal pain Additional Impressions: Constipation Qualified Codes: K59.00 - Constipation, unspecified CKD (chronic kidney disease) stage 5, GFR less than 15 ml/min ER Course Patient with abdominal pain. Labs at baseline. CT is unremarkable for obstruction. She does complain of constipation with no bowel movement for last few days. We will put her on lactulose. No evidence of UTI or obstruction or acute abdomen. Will discharge home. CT/MRI/US Diagnostic Results CT/MRI/US Diagnostic Results : Imaging Test Ordered: CT abdomen pelvis Impression Read by radiologist. Nonspecific finding. No obstruction. No appendicitis. Last Vital Signs Date Time Temp Pulse Resp B/P (MAP) Pulse Ox O2 Delivery O2 Flow Rate FiO2 11/07/19 00:14 98.6 98 14 140/72 (94) 98 Room Air Status: improved Disposition: HOME, SELF-CARE Condition: Stable Scripts Lactulose (LACTULOSE*) 20 Gm/30 Ml Solution 30 ML ORAL BID, #240 ML 0 Refills Prov: Carlos A Govea MD 11/07/19 Ibuprofen* (MOTRIN*) 600 Mg Tablet 600 MG ORAL THREE TIMES A DAY, #30 TAB 0 Refills Prov: Carlos A Govea MD 11/07/19 Referrals: NON PHYSICIAN (PCP) Patient Instructions: Abdominal Pain, Adult Additional Instructions: Follow up with your doctor in 2 3 days if not better. Return if symptoms worsen. Carlos A Govea MD Nov 07, 2019 02:01
--- NOTE | 2019-11-07 03:35 | Diagnostic Imaging Report ---
Indication: Abdominal pain Technique: Spiral acquisitions obtained through the abdomen and pelvis. No oral contrast utilized, per emergency room physician request No IV contrast utilized, per referring physician request. Multiplanar reconstructions were generated. Total dose length product 1492 mGycm. CTDIvol(s) 25 mGy. Dose reduction achieved using automated exposure control Comparison: 04/06/2015 Findings: There is moderate retained colonic stool. Colon is diffusely upper limits of normal in caliber. Fluid is seen in the cecum. The appendix is normal. Small bowel loops are fluid-filled, nondistended. The distal esophagus, stomach, duodenum are unremarkable. The liver, gallbladder, bile ducts, pancreas, spleen, right adrenal are unremarkable. The left adrenal demonstrates a 2.2 cm low-attenuation adenoma. The kidneys are somewhat atrophic, otherwise unremarkable. No renal or ureteral calculi, hydronephrosis, or hydroureter. No retroperitoneal or mesenteric mass or adenopathy. No pelvic mass or adenopathy. The bladder is equivocally mildly thick-walled, appearance similar to previous. There is a midline surgical scar. There is some thickening of the skin and subcutaneous fat to the left of the umbilicus. There is evidence of prior hysterectomy. The lung bases demonstrate posterior dependent atelectatic changes on the right. There is trace pleural fluid. The bones demonstrate degenerative spondylosis changes. There is bilateral L5 spondylolysis, grade 1 L5 on S1 spondylolisthesis. Impression: Nonspecific fluid-filled small bowel loops, could be baseline for this patient or could indicate diarrheal illness No definite acute abdominal or pelvic process otherwise Right basilar pulmonary posterior dependent atelectatic changes and trace pleural fluid Bilateral L5 spondylolysis, grade 1 L5 on S1 spondylolisthesis, also previously demonstrated 2.2 cm left adrenal adenoma, also evident previously and unchanged Apparent mild bladder wall thickening. Probably an artifact of under distention, but cystitis also possible. Correlate with clinical findings. This agrees with the preliminary interpretation provided overnight by [facility]. The CT scanner at [facility] is accredited by the [employer] and the scans are performed using protocols designed to limit radiation exposure to as low as reasonably achievable to attain images of sufficient resolution adequate for diagnostic evaluation.
[2019-11-07] MEDS ORDERED: IBUPROFEN600 MG ORAL (03:51)
[2019-11-07] MEDS ORDERED: LACTULOSE20 GM/301 ORAL (03:51)
[2019-11-07 04:30] VITALS: BP 138/68
== END 2019-11-07 04:30 | disposition home or self-care (01) ==
LOC: EMR 11-07 00:53
DX: R10.84 Generalized abdominal pain (principal); K59.00 Constipation, unspecified; I12.0 Hypertensive chronic kidney disease with stage 5 chronic kidney disease or end stage renal disease; E11.22 Type 2 diabetes mellitus with diabetic chronic kidney disease; N18.5 Chronic kidney disease, stage 5
CPT/HCPCS: 36415; 74176; 80053; 81003; 83690; 85025; 96361; 96374; 96375; J2270; J2405; J7030; Z7502; 99284